=== PATIENT | male | born 1940 | race Caucasian/White ===

== ENCOUNTER 2020-06-18 16:11 | Inpatient (IN) | payer OTHER ==
--- OUTSIDE RECORDS SUMMARY | 2020-06-18 16:14 | XMS REPORT | Clinical Summary ---
:1940 Author Organization [facility] Address [address] [place] [address] Care Team Providers Name Role Phone Buck Zhang MD Primary Care Provider Allergies Active Allergy Reactions Severity Noted Date Comments No Known Drug Allergies Medications Medication Sig Dispensed Refills Start End Status Date Date risedronate (ACTONEL) TAKE 1 TABLET 3 08/16/20 Active 150 MG tablet BY ORAL ROUTE 16 EVERY MONTH IN MORNING WITH 8OZ WATER RANITIDINE HCL (ZANTAC Take by mouth. 0 Active 75 ORAL) CALCIUM Take 600 mg by 0 Activ e CARBONATE/VITAMIN D3 mouth 2 (two) (CALCIUM 500 WITH D times a day. ORAL) aspirin (ECOTRIN) 81 Take 81 mg by 0 Active MG enteric coated mouth daily. tablet multivitamin Take 1 tablet 0 Act violette (THERAGRAN) tablet by mouth daily. FLUZONE HIGH-DOSE TO BE 0 06/19/20 Ac tive 2017-, PF, 180 ADMINISTERED BY 18 mcg/0.5 mL syringe IM PHARMACIST FOR injection IMMUNIZATION valsartan (DIOVAN) 40 TAKE 1 TABLET 30 tablet 0 06/25/20 Active MG tablet BY MOUTH EVERY 19 DAY valsartan 80 MG tablet Take 1 tablet 0 Active 1 tablet, by mouth daily. hydroCHLOROthiazide 25 1/2 tab once MG tablet 0.5 tablet daily tamsulosin (FLOMAX) Take 0.4 mg by 0 Active 0.4 mg capsule mouth daily with dinner. 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 STENT Medical History Medical History Date Comments Aneurysm (HCC) kidney Hypertension Arrhythmia Family History Medical History Relation Name Comments Stroke Mother Cancer Sister Heart attack Sister Relation Name Status Comments Father Mother Sister Social History Tobacco Use Types Packs/Day Years Used Date Never Smoker Smokeless Tobacco: Never Used Alcohol Use Drinks/Week oz/Week Comments No Sex Assigned at Date Recorded Not on file COVID-19 Exposure Response Date Recorded In the last month, have you been in contact with No / Unsure 06/06/2020 1:44 PM CDT someone who was confirmed or suspected to have Coronavirus / COVID-19? Last Filed Vital Signs Vital Sign Reading Time Taken Comments Blood Pressure 166/67 06/06/2020 1:54 PM CDT Pulse 51 06/06/2020 1:54 PM CDT Temperature - - Respiratory Rate - - Oxygen Saturation - - Inhaled Oxygen Concentration - - Weight 68 kg (150 lb) 06/06/2020 1:54 PM CDT Height 175.3 cm (5' 9") 06/06/2020 1:54 PM CDT Body Mass Index 22.15 06/06/2020 1:54 PM CDT Plan of Treatment Date Type Specialty Care Team Description 06/20/2020 Appointment Procedural Cardiology Health Maintenance Due Date Last Done Comments SHINGLES VACCINES (#1) 1990 65+ PNEUMOCOCCAL VACCINE (1 of 1 - PPSV23) 2005 INFLUENZA VACCINE 04/08/2020 Implants Implanted Type Area Brazing Machine Feeder Device Shelf Model / Identifier Expiration Serial / Date Lot Stent Bili Elite Herculink Neil 6x12mm W/ Cath 80cm - [id number] Peripheral or N/A: LYLE VASCULAR 06/07/2018 [id number] 12 / Implanted: 12/12/2016 at [facility] (Quantity not on file) Dimitris iary Stents N/A DEVICES / [id number] Procedures Procedure Name Priority Date/Time Associated Diagnosis Comme nts TTE COMPLETE, W Routine 06/07/2020 1:40 Essential Results for this CONTRAST, W DOPPLER PM CDT hypertension procedure are in (C8929) Coronary artery the results disease of king salmon section. artery of king salmon heart with stable angina pectoris (HCC) SOB (shortness of breath) Renal artery stenosis (HCC) US RENAL DOPPLER Routine 06/07/2020 12:02 Essential Results for this PM CDT hypertension procedure are in Coronary artery the results disease of king salmon section. artery of king salmon heart with stable angina pectoris (HCC) SOB (shortness of breath) Renal artery stenosis (HCC) ECG 12-LEAD Routine 06/06/2020 1:57 Essential Results for this AM CDT hypertension procedure are i n the results section. after 06/18/2019 Results Transthoracic Echocardiogram Complete, (w Contrast, Strain and 3D if needed) (06/07/2020 1:40 PM CDT) Specimen Narrative Performed At [facility] Echo cardiography Report Pat.Name: JORDI THAPA Pat.ID: [id number] .Date: 06/07/2020 Refer.MD: JIM BROWN MD Exam Time: 1:13:00 PM Study Type:R outine Echo Height: 69in Weight: 150lb BSA: 1.83 m2 Ag e: 1940,80Y Sex: MALE BP: 166/67 HR: 57 bpm Sonogrphr: DAVID Richardson FASE Pat. Stat.:Outpatient Room: [place] Study Status:Final Echo Event ID:[id number] Order ID: [id number] Reason for Study:Essential hypertension [I10 (ICD-10-CM)]; Coronary artery disease of king salmon artery of nativ e heart with stable angina pectoris (HCC) [I25.118 (ICD-10-CM)]; SO B (shortness of breath) [R06.02 (ICD-10-CM)]; Renal artery steno sis ([facility]) [I70.1 (ICD-10-CM)] Procedures: 2D Echo, Colorflow Doppler SUMMARY: Normal 2D and Doppler examination. FINDINGS: LV: LV size is normal. LV EF is normal. Overall wall motion is normal. Estimated EF is 6 0-64%. RV: RV size is normal. RV systo lic function is normal. LA: LA size is normal. RA: RA size is normal. AO: Aortic root diameter is nor mal. DAYO: No pericardial effusion. AV: No structural AV abnormalit ies noted. MV: No structural MV abnormalit ies noted. Mild mitral regurgitation. PV: No structural PV abnormalit ies noted. A trace of pulmonic regurgitation. TV: No structural TV abnormalit ies noted. Mild tricuspid regurgitation Goldberg: Normal diastolic function an d LV filling pressures. Other: Estimated PA systolic pressu re is 30 mmHg, assuming a mean RAP of 5 mmHg. MEASUREMENTS: 2D Parasternal Long [place] Ao An 1.5 cm LVPWd 0.88 cm Ao Rtd 3.1 cm Index 1.7 cm/m2 LA Ds 2.5 cm IVSd 1.1 cm RWT 0.38 LVIDd 4.6 cm Index 2.5 cm/m2 LV Mass 158 g (122-1 74) LVIDs 2.9 cm LVM In dex 87 g/m LV%fs 38 % LVOT 1.7 cm LVOT LVOT Area 2.2 cm Signed 06/07/2020 01:59 PM Aguila Bianchi MD Procedure Note Interface, Radiology Results In - 2019 1:59 PM CDT [facility] Echocardiography Report Pat.Name: JORDI THAPA Pat.I D: [id number] St.Date: 06/07/2020 Refer .MD: JIM BROWN MD Exam Time: 1:13:00 PM Study Type:Routine Echo Height: 69in Weigh t: 150lb BSA: 1.83 m2 Age: 7 1940,80Y Sex: MALE BP: 166/67 HR: 57 bpm Sonogrphr: DAVID Richardson FASE Pat. Stat.:Outpatient Room: [place] Study Status:Final Echo Event ID:[id number] Order ID: [id number] Reason for Study:Essential hypertension [I10 (ICD-10-CM)]; Coronary artery disease of king salmon artery of nativ e heart with stable angina pectoris (HCC) [I25.118 (ICD-10-CM)]; SO B (shortness of breath) [R06.02 (ICD-10-CM)]; Renal artery steno sis (HCC) [I70.1 (ICD-10-CM)] Procedures: 2D Echo, Colorflow Doppler SUMMARY: Normal 2D and Doppler examination. FINDINGS: LV: LV size is normal. LV EF is no rmal. Overall wall motion is normal. Estimated EF is 60-64% . RV: RV size is normal. RV systolic function is normal. LA: LA size is normal. RA: RA size is normal. AO: Aortic root diameter is normal . DAYO: No pericardial effusion. AV: No structural AV abnormalities noted. MV: No structural MV abnormalities noted. Mild mitral regurgitation. PV: No structural PV abnormalities noted. A trace of pulmonic regurgitation. TV: No structural TV abnormalities noted. Mild tricuspid regurgitation Goldberg: Normal diastolic function and LV filling pressures. Other: Estimated PA systolic pressure is 30 mmHg, assuming a mean RAP of 5 mmHg. MEASUREMENTS: 2D Parasternal Long [place] Ao An 1.5 cm LVPW d 0.88 cm Ao Rtd 3.1 cm Inde x 1.7 cm/m2 LA Ds 2.5 cm IVSd 1.1 cm RWT 0.38 LVIDd 4.6 cm Inde x 2.5 cm/m2 LV Mass 158 g (122-174) LVIDs 2.9 cm LVM Index 87 g/m LV%fs 38 % LVOT 1.7 cm LVOT LVOT Area 2.2 cm Signed 06/07/2020 01:59 PM Aguila Bianchi MD Performing Organization Address City/State/ZIP Code Phon e Number [facility] [id number] [place] [address] US Renal Doppler (06/07/2020 12:02 PM CDT) Specimen Narrative Performed At EXAMINATION: US RENAL DOPPLER [facility] CLINICAL HISTORY: I10 Essential (primary) hypertensi on, I25.118 Atherosclerotic heart disease of king salmon coronary arter y with other forms of angina pectoris, other TECHNIQUE: Examination includes a full duplex Doppler scan of the renal vessels (real-time B mode grayscale, Doppler spectral analysis, and Doppler color flow imaging). COMPARISON: None. FINDINGS: Right renal arterial waveforms demonstrate normal syst olic upstrokes and good end diastolic flow. The right renal vein is pat ent. The resistive index measures between 0.75 and 0.82. Right renal artery stent. Peak systolic velocity the main r enal artery is 225 cm/s. Left renal arterial waveforms demonstrate normal systo lic upstrokes and good end diastolic flow. The left renal vein is patent . The resistive index measures between 0.71 and 0.78. Peak systolic ve locity the main left renal artery is 171 cm/s. IMPRESSION: 1.No evidence to suggest renal artery st enosis. 2.Atherosclerotic changes involve the abdominal aorta in addition to calcifications and plaque arteries. [id number] Procedure Note Hm Interface, Radiology Results Incoming - 06/07/2020 12:17 PM CDT EXAMINATION: US RENAL DOPPLER CLINICAL HISTORY: I10 Essential (primar y) hypertension, I25.118 Atherosclerotic heart disease of king salmon coronary artery with other forms of angina pectoris, other TECHNIQUE: Examination includes a full d uplex Doppler scan of the renal vessels (real-time B mode grayscale, Doppler spectral analysis, and Doppler color flow imaging). COMPARISON: None. FINDINGS: Right renal arterial waveforms demonstra te normal systolic upstrokes and good end diastolic flow. The right renal vein is patent. The resistive index measures between 0.75 and 0.82. Right renal artery stent. Peak systolic velocity the main renal artery is 225 cm/s. Left renal arterial waveforms demonstrat e normal systolic upstrokes and good end diastolic flow. The left renal vein is patent. The resistive index measures between 0.71 and 0.78. Peak systolic velocity the main left renal artery is 171 cm/s. IMPRESSION: 1.No evidence to suggest renal artery st enosis. 2.Atherosclerotic changes involve the ab dominal aorta in addition to calcifications and plaque arteries. [id number] Performing Organization Address City/State/ZIP Code Phon e Number [facility] [address] [facility] [place] [address] ECG 12 lead (06/06/2020 1:57 AM CDT) Pathologist Sig nature Ventricular rate 51 [facility] Atrial rate 51 [facility] TX interval 158 [facility] QRSD interval 102 [facility] QT interval 430 [facility] QTC interval 396 [facility] P axis 1 83 [facility] QRS axis 1 82 [facility] T wave axis 78 [facility] EKG impression Sinus bradycardia with michel ture atrial complexes-Minimal voltage criteria for LVH, may be normal variant-Borderline ECG-In automated comparison with ECG of 14-JUL-2018 08:15,-No significant change was [facility] M[facility] found- Specimen Narrative Performed At This result has an attachment that is no t available. Performing Organization Address City/State/ZIP Code Phon e Number [facility] MUSE [address] [place] [address] after 06/18/2019 Advance Directives For more information, please contact: [phone] Type Date Recorded Patient Rn Primary Care Explanati on Advance Directives, Living Will and Medical Power of Narcotics And/Or Vice Detective
--- OUTSIDE RECORDS SUMMARY | 2020-06-18 16:14 | XMS REPORT | Continuity of Care Document ---
:[address] [facility] t Address Formerly [facility] [address] [place] [address] Care Team Providers Name Role Phone Buck Zhang MD Primary Care Physician KEVIN Attending Clinician Unavailable Alexandro MEDINA Attending Clinician Doctor Unassigned, Name Attending Clinician Unavailable Payers Payer Name Policy Type Policy Effective Date Expiration Date Sour ce Number AETNA MEDICAREAETNA [id number] 2013 [place] MEDICARE H[place]/PPO 00:00:00 Methodis t [id number] -PresentHMO Problems Condition Condition Condition Status Onset Resolution Last Treating Co mments Source Name Details Category Date Date Treatment Clinician Date SOB SOB Disease Active [place] (shortness (shortness 9-29 [facility] of breath) of breath) 00:00: st 00 Coronary Coronary Disease Active [place] artery artery 9-29 [facility] disease of disease of 00:00: st [place] 00 artery of artery of [place] heart with heart with stable stable angina angina pectoris pectoris Renal Renal Disease Active [place] artery artery 3-07 [facility] stenosis stenosis 00:00: st 00 Essential Essential Disease Active [place] hypertensi hypertensi 2-14 Me thodi on on 00:00: st 00 Renal Renal Disease Active [place] artery artery 2-14 [facility] aneurysm aneurysm 00:00: st 00 Palpitatio Palpitatio Disease Active [place] n 2-14 Method[facility] 00:00: st 00 Allergies, Adverse Reactions, Alerts This patient has no known allergies or adverse reactions. Family History Family Member Diagnosis Comments Start Date Stop Date Source Natural mother Stroke [facility] thodist Natural sister Cancer [facility]odist Natural sister Heart attack [facility] Caodaism Social History Social Habit Start Date Stop Date Quantity Comments Source Sex Assigned At [facility] ethodist Exposure to Not sure [place] Metho dist SARS-CoV-2 (event) Tobacco use and 2020-06-06 2020-06-06 Never used [facility] ethodist exposure 00:00:00 00:00:00 Alcohol intake 2020-06-06 2020-06-06 Current [facility] thodist 00:00:00 00:00:00 non-drinker of alcohol (finding) Smoking Status Start Date Stop Date Source Never smoker [place] Bintais damari Medications Ordered Filled Start Stop Current Ordering Indication Dosage Frequency Signature Comments Components Source Medication Medication Date Date Medication? Clinician (SIG) Name Name RANITIDINE Yes Take by [place] HCL (ZANTAC 06-06 mouth. Method i 75 ORAL) 14:00: st 56 CALCIUM 2020-0 Yes 600mg Q.5D Take 600 [place] CARBONATE/V 9-29 mg by [facility] ITAMIN D3 14:00: mouth 2 st (CALCIUM 56 (two) 500 WITH D times a ORAL) day. aspirin 2019-0 Yes 81mg QD Take 81 mg [place] (ECOTRIN) - by mouth Method i 81 MG 14:00: daily. st enteric 56 coated tablet multivitami 2019-0 Yes 1{tbl} QD Take 1 [place] 9-29 tablet by [facility] (THERAGRAN) 14:00: mouth st tablet 56 daily. valsartan 2019- Yes 1{tbl} QD Take 1 [place] 80 MG 9-29 tablet by [facility] tablet 1 14:00: mouth st tablet, 56 daily. 1/2 hydroCHLORO tab once thiazide 25 daily MG tablet 0.5 tablet tamsulosin 2019- Yes .4mg QD Take 0.4 [place] (FLOMAX) 9-29 mg by [facility] 0.4 mg 14:00: mouth st capsule 56 daily with dinner. valsartan 2018-09 Yes TAKE 1 [place] (DIOVAN) 40 0-18 TABLET BY Met hodi MG tablet 00:00: MOUTH st 00 EVERY DAY valsartan 2019- No TAKE 1 [place] (DIOVAN) 40 7-19 10-18 TABLET BY Me thodi MG tablet 00:00: 00:[address] 00 :00 EVERY DAY FLUZONE 2017-09 Yes TO BE [place] HIGH-DOSE 0-12 ADMINISTER Meth [place] , 00:00: ED BY st PF, 180 00 PHARMACIST mcg/0.5 mL FOR syringe IM IMMUNIZATI injection ON risedronate 2015-09 Yes TAKE 1 [place] (ACTONEL) 2-09 TABLET BY [place] di 150 MG 00:00: ORAL ROUTE st tablet 00 EVERY MONTH IN MORNING WITH 8OZ WATER Vital Signs Vital Name Observation Time Observation Value Comments Source Systolic blood 2020-06-06 13:54:00 166 mm[Hg] Benyto n Caodaism pressure Diastolic blood 2020-06-06 13:54:00 67 mm[Hg] [place] [facility]oda[place] pressure Heart rate 2020-06-06 13:54:00 51 /min Bijan Virgen Body height 2020-06-06 13:54:00 175.3 cm Bijan Virgen Body weight 2020-06-06 13:54:00 68.04 kg Bijan Virgen BMI 2020-06-06 13:54:00 22.15 kg/m2 Bijan Virgen Procedures Procedure Date / Time Performed Performing Clinician Sourc e TTE COMPLETE, W 2020-06-07 13:40:20 Jim Garcia CONTRAST, W DOPPLER (C8929) US RENAL DOPPLER 2020-06-07 12:02:05 Jim Garcia Met hodist ECG 12-LEAD 2020-06-06 01:57:29 Jim Garcia odist Plan of Care Planned Activity Planned Date Details Comments Source Future Scheduled 2020-04-08 INFLUENZA VACCINE Benyto n Caodaism Test 00:00:00 [code = INFLUENZA VACCINE] Future Scheduled 2005 65+ PNEUMOCOCCAL Thakkar Caodaism Test 00:00:00 VACCINE (1 of 1 - PPSV23) [code = 65+ PNEUMOCOCCAL VACCINE (1 of 1 - PPSV23)] Future Scheduled 1990 SHINGLES VACCINES (#1) H mihai Caodaism Test 00:00:00 [code = SHINGLES VACCINES (#1)] Encounters Start End Encounter Admission Attending Care Care Encounter Source Date/Time Date/Time Type Type Clinicians Facility Department ID 2020-06-07 2020-06-07 Outpatient [facility]IN [facility] [id number] [place] 00:00:00 00:00:00 JIM [address] 2020-06-07 2020-06-07 Outpatient [facility] [id number] [place] 00:00:00 00:00:00 JIM [address] 2020-06-06 2020-06-06 Outpatient [facility]EVIN [facility] [id number] [place] 00:00:00 00:00:00 JIM [address] 2019-10-13 2019-10-13 Telephone [facility] [id number] 00:00:00 00:00:00 Hai Feldman [id number] [place] [id number] Professcarito [phone] nal 044 [facility] 2019-10-12 2019-10-12 Orders Doctor AZAM [id number] 00:00:00 00:00:00 Only Unassigned, BHARATH [id number] [place] [facility] [id number] 2019-05-03 2019-05-20 Office [facility] [id number] 14:34:48 12:20:49 Visit Hai Feldman [id number] [place] [id number] Professio [id number] nal 044 [facility] Results Test Description Test Time Test Comments Results Result Comments Source ECG 12 lead 2020-06-06 23:41:14 Test Item Value Reference Range Interpretation Comme nts Ventricular rate (test code = 253) 51 Atrial rate (test code = 255) 51 MD interval (test code = 266) 158 QRSD interval (test code = 260) 102 QT interval (test code = 264) 430 QTC interval (test code = 265) 396 P axis 1 (test code = 267) 83 QRS axis 1 (test code = 268) 82 T wave axis (test code = 270) 78 EKG impression (test code = 273) Sinus bradycardia with premature a trial complexes-Minimal voltage criteria for LVH, may be normal variant-Borderline ECG-In automated comparison with ECG of 14-JUL-2018 08:15,-No significant change was found- Bijan Virgen
[2020-06-18] MEDS ORDERED: FENTANYL CITR 100 MCG/2 ML ONE (16:38)
[2020-06-18 16:46] LABS: Absolute Lymphocytes (CBC) 2.1 K/uL (0.7-4.9); Basophils % 1.2 % (0-1.3); Hematocrit 37.5 % (39.6-49.0); Lymphocytes % 40.3 % (15.3-44.8); MPV 7.7 fL (7.6-11.3)
[2020-06-18 16:49] LABS: Protime INR 0.96
--- NOTE | 2020-06-18 16:54 | RAD REPORT ---
EXAM DESCRIPTION: RAD - Hip Left 2 View - 06/18/2020 4:42 pm CLINICAL HISTORY: DEFORMITY COMPARISON: No comparisons FINDINGS: AP and cross-table lateral views were obtained. An oblique intertrochanteric fracture is present. Lesser trochanter remains attached to the distal fr acture fragment. There is minimal impaction and only minimal angulation deformity. Patient has a rela tively short femoral neck which is intact. No focal femoral head abnormality. Degenerative change pre sent along the superior acetabular rim. No significant soft tissue finding. IMPRESSION: Left femur intertrochanteric fracture. No pathologic component seen.
[2020-06-18 17:05] LABS: ALT/SGPT 19 U/L (12-78); AST/SGOT 18 U/L (15-37); Albumin 3.4 g/dL (3.4-5.0); Alkaline Phosphatase 70 U/L (45-117); BUN Blood Urea Nitrogen 26 mg/dL (7-18); Bicarbonate 32 mmol/L (21-32); Bilirubin Total 0.3 mg/dL (0.2-1.0); Glucose Level 105 mg/dL (74-106); Potassium 3.9 mmol/L (3.5-5.1); Protein, Total 6.8 g/dL (6.4-8.2); Sodium Level 143 mmol/L (136-145); Troponin (Emerg Dept Use Only) < 0.02 ng/mL (0.0-0.045)
[2020-06-18] MEDS ORDERED: DIAZEPAM 10 MG/2 ML INJ SYRINGE ONE (17:52)
--- NOTE | 2020-06-18 18:08 | EDPHYS ---
Physician Documentation [facility] Name: Jordi Hayward Age: 80 yrs Sex: Male : 1940 Arrival Date: 06/18/2020 Time: 16:19 Bed 3 Private MD: ED Physician Josh Hutton HPI: 06/18 16:21 This 80 yrs old Male presents to ER via EMS with complaints of left hip pain. ps1 16:21 Patient sustained mechanical fall. No loss of consciousness. Has short rotated left ps1 leg. Not on blood thinners. No headache, lightheadedness, or other sites of pain. . Historical: - Allergies: 16:22 No Known Allergies; ll1 - PMHx: 16:22 Osteoporosis; Hypertension; ll1 - PSHx: 16:22 Kidney stents; retinal artery sx; ll1 - Immunization history:: Flu vaccine is up to date. - Social history:: Smoking status: Patient denies any tobacco usage or history of. - Immunization history: Last tetanus immunization: < 10 years ago. ROS: 16:21 Constitutional: Negative for fever, chills, and weight loss, Eyes: Negative for injury, ps1 pain, redness, and discharge, Cardiovascular: Negative for chest pain, palpitations, and edema, Respiratory: Negative for shortness of breath, cough, wheezing, and pleuritic chest pain, Abdomen/GI: Negative for abdominal pain, nausea, vomiting, diarrhea, and constipation, Skin: Negative for injury, rash, and discoloration, Neuro: Negative for headache, weakness, numbness, tingling, and seizure. 16:21 MS/extremity: Positive for decreased range of motion, pain, of the lateral aspect of left thigh. Exam: 16:21 Constitutional: This is a well developed, well nourished patient who is awake, alert, ps1 and in no acute distress. Head/Face: Normocephalic, atraumatic. Eyes: Pupils equal round and reactive to light, extra-ocular motions intact. Lids and lashes normal. Conjunctiva and sclera are non-icteric and not injected. Chest/axilla: Normal chest wall appearance and motion. Nontender with no deformity. No lesions are appreciated. Cardiovascular: Regular rate and rhythm. No gallops, murmurs, or rubs. Normal PMI, no JVD. No pulse deficits. Respiratory: Lungs have equal breath sounds bilaterally, clear to auscultation and percussion. No rales, rhonchi or wheezes noted. No increased work of breathing, no retractions or nasal flaring. Abdomen/GI: Soft, non-tender, with normal bowel sounds. No distension or tympany. No guarding or rebound. No evidence of tenderness throughout. 16:21 Musculoskeletal/extremity: Extremities: grossly normal except: noted in the left leg and lateral aspect of left thigh: deformity, pain. Vital Signs: 16:19 BP 201 / 80; Pulse 60; Resp 16; Temp 98.0; Pulse Ox 100% ; Pain 6/10; ll1 17:00 BP 153 / 67; Pulse 49; Resp 15; Pulse Ox 100% on R/A; Pain 5/10; hb 18:00 BP 167 / 63; Pulse 52; Resp 15; Pulse Ox 99% on R/A; Pain 6/10; hb 18:58 BP 164 / 64; Pulse 49; Resp 15; Pulse Ox 100% ; Pain 6/10; hb 19:24 BP 159 / 79; Pulse 52; Resp 18; Pulse Ox 100% on R/A; wh Vesna Coma Score: 16:16 Eye Response: spontaneous(4). Verbal Response: oriented(5). Motor Response: obeys sv commands(6). Total: 15. Trauma Score (Adult): 16:19 Eye Response: spontaneous(1); Verbal Response: oriented(1); Motor Response: obeys sv commands(2); Systolic BP: > 89 mm Hg(4); Respiratory Rate: 10 to 29 per min(4); Vesna Score: 15; Trauma Score: 12 17:00 Eye Response: spontaneous(1); Verbal Response: oriented(1); Motor Response: obeys hb commands(2); Systolic BP: > 89 mm Hg(4); Respiratory Rate: 10 to 29 per min(4); Vesna Score: 15; Trauma Score: 12 18:00 Eye Response: spontaneous(1); Verbal Response: oriented(1); Motor Response: obeys hb commands(2); Systolic BP: > 89 mm Hg(4); Respiratory Rate: 10 to 29 per min(4); Tumtum Score: 15; Trauma Score: 12 18:58 Eye Response: spontaneous(1); Verbal Response: oriented(1); Motor Response: obeys hb commands(2); Systolic BP: > 89 mm Hg(4); Respiratory Rate: 10 to 29 per min(4); Vesna Score: 15; Trauma Score: 12 MDM: 16:29 Patient medically screened. ps1 18:08 Data reviewed: vital signs, nurses notes, radiologic studies, and as a result, I will ps1 admit patient. Counseling: I had a detailed discussion with the patient and/or guardian regarding: the historical points, exam findings, and any diagnostic results supporting the discharge/admit diagnosis, radiology results, the need for further work-up and treatment in the hospital. Physician consultation: Froilan Oakes MD NPO after 8am. Will do surgery late tomorrow. . 06/18 16:29 Order name: CBC with Diff; Complete Time: 17:37 ps1 06/18 16:29 Order name: CMP; Complete Time: 17:37 [facility] 06/18 16:29 Order name: PT-INR; Complete Time: 17:37 [facility] 06/18 16:29 Order name: Ptt, Activated; Complete Time: 17:37 ps1 06/18 16:29 Order name: Troponin (emerg Dept Use Only); Complete Time: 17:37 [facility] 06/18 18:15 Order name: Basic Metabolic Panel EDMS 06/18 16:29 Order name: Hip Left 2 View XRAY; Complete Time: 17:37 [facility] 06/18 18:15 Order name: Basic Metabolic Panel EDMS 06/18 18:15 Order name: CBC with Automated Diff EDMS 06/18 18:15 Order name: CBC with Automated Diff EDMS 06/18 18:15 Order name: CONS Physician Consult EDMS 06/18 18:15 Order name: NPO EDMS Administered Medications: 16:31 Drug: fentaNYL (PF) 75 mcg Route: IVP; Site: right antecubital; hb 17:01 Follow up: Response: No adverse reaction hb 16:31 Drug: Zofran (Ondansetron) 4 mg Route: IVP; Site: right antecubital; hb 17:01 Follow up: Response: No adverse reaction hb 17:44 Drug: Valium 2.5 mg Route: IVP; Site: right wrist; ph 17:45 Follow up: Response: No adverse reaction ph 18:12 Drug: Valium 2.5 mg Route: IVP; Site: right forearm; hb 19:27 Follow up: Response: No adverse reaction; RASS: Alert and Calm (0) Disposition: 06/18/20 18:08 Hospitalization ordered by Cora Zhang for Inpatient Admission. Preliminary diagnosis is Left intertrochanteric fracture. - Bed requested for Telemetry/MedSurg (Inpatient). - Status is Inpatient Admission. bb - Condition is Stable. - Problem is new. - Symptoms are unchanged. Signatures: Dispatcher [employer] EDMS Sosa Goodson RN RN bb Tish Rodriguez RN RN tl1 Lor Sanchez RN RN Vera Somers RN RN Josh Hutton MD MD ps1 Randell Ojeda RN RN ll1 Paul Parnell Corrections: (The following items were deleted from the chart) 18:50 18:08 Hospitalization Ordered by A Vicente MEDINA for Inpatient Admission. Preliminary tl1 diagnosis is Left intertrochanteric fracture. Bed requested for Telemetry/MedSurg (Inpatient). Status is Inpatient Admission. Condition is Stable. Problem is new. Symptoms are unchanged. ps1 19:41 18:50 06/18/2020 18:08 Hospitalization Ordered by A Vicente MEDINA for Inpatient Admission. bb Preliminary diagnosis is Left intertrochanteric fracture. Bed requested for Telemetry/MedSurg (Inpatient). Status is Inpatient Admission. Condition is Stable. Problem is new. Symptoms are unchanged. tl1
--- NOTE | 2020-06-18 18:08 | ER ---
Nurse's Notes [facility] Name: Jordi Hayward Age: 80 yrs Sex: Male : 1940 Arrival Date: 06/18/2020 Time: 16:19 Bed 3 Private MD: Diagnosis: Left intertrochanteric fracture Presentation: 06/18 16:16 Care prior to arrival: Placed on backboard. Trauma event details: Injury occurred in [facility], Injury occurred: at home. Injury occurred: June 18, 2020. 16:19 Chief complaint: EMS states: Vital signs stable. Chief complaint: Patient states: ll1 Working with a wheelbarrow, contents shifted, he fell over onto left hip. No LOC or head injury. Back board upon arrival. Trauma alert called upon arrival. Coronavirus screen: Client denies travel out of the [place] in the last 14 days. At this time, the client does not indicate any symptoms associated with coronavirus-19. Ebola Screen: Patient denies travel to an Ebola-affected area in the 21 days before illness onset. Initial Sepsis Screen: Does the patient meet any 2 criteria? No. Patient's initial sepsis screen is negative. Does the patient have a suspected source of infection? Yes: Bone or joint infection. Risk Assessment: Do you want to hurt yourself or someone else? Patient reports no desire to harm self or others. Onset of symptoms was June 18, 2020. 16:19 Method Of Arrival: EMS ll1 16:19 Acuity: DARRYN 2 ll1 16:22 Mechanism of Injury: Fall from standing position. hb Trauma Activation: Alert Physician: ED Physician; Name: Dr Hutton; Notified At: 16:16; Arrived At: 16:20 Physician: General Surgeon; Name: ; Notified At: 16:16; Arrived At: Physician: Radiology; Name: Shayy Bravo; Notified At: 16:16; Arrived At: 16:17 Physician: Respiratory; Name: ; Notified At: 16:16; Arrived At: Physician: Lab; Name: ; Notified At: 16:16; Arrived At: Historical: - Allergies: 16:22 No Known Allergies; ll1 - PMHx: 16:22 Osteoporosis; Hypertension; ll1 - PSHx: 16:22 Kidney stents; retinal artery sx; ll1 - Immunization history:: Flu vaccine is up to date. - Social history:: Smoking status: Patient denies any tobacco usage or history of. - Immunization history: Last tetanus immunization: < 10 years ago. Screenin:30 Abuse screen: Denies threats or abuse. Denies injuries from another. Tuberculosis sv screening: No symptoms or risk factors identified. 16:30 Nutritional screening: No deficits noted. Fall Risk No fall in past 12 months (0 pts). sv No secondary diagnosis (0 pts). IV access (20 points). Ambulatory Aid- None/Bed Rest/Nurse Assist (0 pts). Gait- Normal/Bed Rest/Wheelchair (0 pts) Mental Status- Oriented to own ability (0 pts). Total Byers Fall Scale indicates No Risk (0-24 pts). Primary Survey: 16:16 NO uncontrolled hemorrhage observed. A: The patient is alert. Airway: patent. hb Breathing/Chest: Respiratory pattern: regular, Respiratory effort: spontaneous, unlabored, Chest inspection: symmetrical rise and fall of the chest. Circulation: Pulses: palpable left dorsalis pedis artery. Skin color: pink, pale, Skin temperature: warm, dry. Disability Alert. Exposure/Environment: All clothing and personal items were removed. Forensic evidence collection is not deemed to be indicated at this time. Items placed in patient belonging bag. There is no evidence of uncontrolled external bleeding. Obvious injury(ies) are noted at this time: shortening and external rotation noted to left leg. 17:00 Reassessment Airway Airway Patent Oxygen No O2 Breathing/Chest Respiratory pattern hb Regular Respiratory effort Spontaneous Chest inspection Symmetrical Circulation Pulses Palpable Color Owen Disability Alert. 18:00 Reassessment Airway Airway Patent Oxygen No O2 Breathing/Chest Respiratory pattern hb Regular Respiratory effort Spontaneous Unlabored Chest inspection Symmetrical Circulation Pulses Palpable Color Owen. 18:59 Reassessment Airway Airway Patent Oxygen No O2 Breathing/Chest Respiratory pattern hb Regular Respiratory effort Spontaneous Unlabored Chest inspection Symmetrical Circulation Pulses Palpable Color Owen Disability Alert. Secondary Survey: 16:16 HEENT: No deficits noted. Gastrointestinal: No deficits noted. : No deficits noted. hb Musculoskeletal: left leg shortened and externally rotated. Assessment: 16:17 Reassessment: Trauma alert called. hb 16:20 General: Appears in no apparent distress. Behavior is calm, cooperative. Pain: Pain hb currently is 8 out of 10 on a pain scale. Neuro: Level of Consciousness is awake, alert, obeys commands, Oriented to person, place, time, situation. Cardiovascular: Capillary refill < 3 seconds Patient's skin is warm and dry. Pulses are 3+ in left dorsalis pedis artery. Respiratory: Airway is patent Respiratory effort is even, unlabored, Respiratory pattern is regular, symmetrical. GI: No signs and/or symptoms were reported involving the gastrointestinal system. : No signs and/or symptoms were reported regarding the genitourinary system. EENT: No signs and/or symptoms were reported regarding the EENT system. Derm: Skin is pink, warm \T\ dry. Musculoskeletal: left leg shortened and externally rotated. 17:02 Reassessment: Patient appears in no apparent distress at this time. Patient and/or hb family updated on plan of care and expected duration. Pain level reassessed. Patient is alert, oriented x 3, equal unlabored respirations, skin warm/dry/pink. 17:45 Reassessment: Pt c/o back spasms, ERP notified, see MAR. ph 18:00 Reassessment: Patient appears in no apparent distress at this time. No changes from hb previously documented assessment. Patient and/or family updated on plan of care and expected duration. Pain level reassessed. Patient is alert, oriented x 3, equal unlabored respirations, skin warm/dry/pink. 18:32 Reassessment: Hari Hayward [phone] (home), (cell). hb 18:58 Reassessment: Patient appears in no apparent distress at this time. No changes from hb previously documented assessment. Patient and/or family updated on plan of care and expected duration. Pain level reassessed. Patient is alert, oriented x 3, equal unlabored respirations, skin warm/dry/pink. Vital Signs: 16:19 BP 201 / 80; Pulse 60; Resp 16; Temp 98.0; Pulse Ox 100% ; Pain 6/10; ll1 17:00 BP 153 / 67; Pulse 49; Resp 15; Pulse Ox 100% on R/A; Pain 5/10; hb 18:00 BP 167 / 63; Pulse 52; Resp 15; Pulse Ox 99% on R/A; Pain 6/10; hb 18:58 BP 164 / 64; Pulse 49; Resp 15; Pulse Ox 100% ; Pain 6/10; hb 19:24 BP 159 / 79; Pulse 52; Resp 18; Pulse Ox 100% on R/A; wh Protivin Coma Score: 16:16 Eye Response: spontaneous(4). Verbal Response: oriented(5). Motor Response: obeys sv commands(6). Total: 15. Trauma Score (Adult): 16:19 Eye Response: spontaneous(1); Verbal Response: oriented(1); Motor Response: obeys sv commands(2); Systolic BP: > 89 mm Hg(4); Respiratory Rate: 10 to 29 per min(4); Vesna Score: 15; Trauma Score: 12 17:00 Eye Response: spontaneous(1); Verbal Response: oriented(1); Motor Response: obeys hb commands(2); Systolic BP: > 89 mm Hg(4); Respiratory Rate: 10 to 29 per min(4); Vesna Score: 15; Trauma Score: 12 18:00 Eye Response: spontaneous(1); Verbal Response: oriented(1); Motor Response: obeys hb commands(2); Systolic BP: > 89 mm Hg(4); Respiratory Rate: 10 to 29 per min(4); Protivin Score: 15; Trauma Score: 12 18:58 Eye Response: spontaneous(1); Verbal Response: oriented(1); Motor Response: obeys hb commands(2); Systolic BP: > 89 mm Hg(4); Respiratory Rate: 10 to 29 per min(4); Vesna Score: 15; Trauma Score: 12 ED Course: 16:16 Patient maintains SpO2 saturation greater than 95% on room air. sv 16:19 Patient arrived in ED. hb 16:19 Vera Somers, RN is Primary Nurse. hb 16:20 Triage completed. ll1 16:20 Arm band placed on Patient placed in an exam room, on a stretcher. ll1 16:20 Thermoregulation: warm blanket given to patient. sv 16:21 Josh Hutton MD is Attending Physician. ps1 16:25 Patient has correct armband on for positive identification. Placed in gown. Bed in low sv position. Call light in reach. Side rails up X2. 16:30 Inserted saline lock: 20 gauge in right forearm, using aseptic technique. Blood hb collected. 16:42 Hip Left 2 View XRAY In Process Unspecified. EDMS 18:07 Cora Zhang MD is Hospitalizing Provider. ps1 19:26 No provider procedures requiring assistance completed. Patient admitted, IV remains in wh place. Administered Medications: 16:31 Drug: fentaNYL (PF) 75 mcg Route: IVP; Site: right antecubital; hb 17:01 Follow up: Response: No adverse reaction hb 16:31 Drug: Zofran (Ondansetron) 4 mg Route: IVP; Site: right antecubital; hb 17:01 Follow up: Response: No adverse reaction hb 17:44 Drug: Valium 2.5 mg Route: IVP; Site: right wrist; ph 17:45 Follow up: Response: No adverse reaction ph 18:12 Drug: Valium 2.5 mg Route: IVP; Site: right forearm; hb 19:27 Follow up: Response: No adverse reaction; RASS: Alert and Calm (0) wh Intake: 16:16 PO: 0ml; Total: 0ml. sv Output: 16:16 Urine: 0ml; Total: 0ml. sv Outcome: 18:08 Decision to Hospitalize by Provider. ps1 18:37 Patient's length of stay in the Emergency Department was greater than 2 hours. Pt hb admitted, awaiting room assignment at this timePatient's length of stay extended due to 19:27 Admitted to Med/surg accompanied by tech, via stretcher, room 202, with chart, Report wh called to Gumaro Perry RN 19:27 Condition: stable 19:27 Instructed on the need for admit. 19:41 Patient left the ED. bb Signatures: Dispatcher [employer] EDCO Crystal Gurrola RN RN sv Sosa Goodson RN VIJI bb Lor Sanchez RN RN Vera Somers RN RN hb Habalo, Winsy Josh Hutton MD MD ps1 Randell Ojeda RN RN ll1 Corrections: (The following items were deleted from the chart) 16:22 16:19 Chief complaint: Patient states: Working with a wheelbarrow, contents shifted, he ll1 fell over onto left hip. No LOC or head injury. Back board upon arrival. ll1 16:22 16:19 Acuity: DARRYN 3 ll1 ll1 16:35 16:20 Inserted saline lock: 20 gauge in right forearm, using aseptic technique. Blood hb collected. hb 18:34 17:00 Reassessment Airway Airway Patent Oxygen No O2 Breathing/Chest Respiratory hb pattern Regular Respiratory effort Spontaneous Chest inspection Symmetrical Asymmetrical Circulation Pulses Palpable Color Owen Disability Alert hb
[2020-06-18] MEDS ORDERED: MORPHINE 4 MG/ML SYR IV PRN (18:11)
[2020-06-18] MEDS ORDERED: ONDANSETRON 4 MG/2 ML VIAL IV PRN (18:11)
[2020-06-18] MEDS ORDERED: VALSARTAN 80 MG TAB PO ONE (21:11)
[2020-06-18] MEDS: D5 0.9 NS 1,000 ML IV SCH (21:55)
--- NOTE | 2020-06-18 22:40 | HP ---
Date of Admission: 06/18/2020 FLY/MODL Voice ID: [id number] MTDD
[2020-06-18 23:43] VITALS: BMI 22.0
[2020-06-19 04:28] LABS: Absolute Lymphocytes (CBC) 1.5 K/uL (0.7-4.9); Basophils % 0.5 % (0-1.3); Hematocrit 32.4 % (39.6-49.0); MPV 7.8 fL (7.6-11.3); RBC Red Blood Cell Count 3.51 M/uL (4.33-5.43)
[2020-06-19] MEDS ORDERED: CYCLOBENZAPRINE 10 MG TAB PO ONE (06:51)
[2020-06-19] MEDS ORDERED: CYCLOBENZAPRINE 10 MG TAB ONE (07:25)
--- NOTE | 2020-06-19 08:08 | RAD REPORT ---
EXAM DESCRIPTION: RAD - Lumbar Spine 3 Views - 06/19/2020 8:01 am CLINICAL HISTORY: Back pain FINDINGS: The alignment of the lumbar spine is satisfactory. No fracture or dislocation is seen. Osteoporosis. Prominent anterolateral osteophytes extend from the lumbar spine.
--- NOTE | 2020-06-19 08:08 | RAD REPORT ---
EXAM DESCRIPTION: VÍCTORManueladamari Single View06/19/2020 8:01 am CLINICAL HISTORY: Preoperative exam COMPARISON: none FINDINGS: Lungs are moderately hyperaerated Calcified granulomas right lung The lungs appear clear of acute infiltrate. The heart is normal size IMPRESSION: COPD without visualization acute abnormality
[2020-06-19] MEDS ORDERED: VALSARTAN 80 MG TAB PO SCH (09:00)
[2020-06-19] MEDS: Ringers Lactate 1,000 ML IV ONE (10:50)
[2020-06-19] MEDS ORDERED: TRANEXAMIC ACID 1,000 MG in NA CHLORIDE 0.9% 50 ML IV ONE (11:00)
[2020-06-19] MEDS ORDERED: propofoL 200 MG/20 ML VIAL IV ONE (11:14)
[2020-06-19] MEDS ORDERED: MIDAZOLAM HCL 2 MG/2 ML INJ ONE (11:14)
[2020-06-19] MEDS ORDERED: FENTANYL CITR 100 MCG/2 ML ONE (11:14)
[2020-06-19] MEDS ORDERED: LIDOCAINE 2% MPF 5 ML VIAL ONE (11:14)
[2020-06-19] MEDS: D5 0.9 NS 1,000 ML IV SCH ×2 (11:20→14:24)
[2020-06-19] MEDS ORDERED: CEFAZOLIN/SWI 1gm 1 GM/10 ML SYR ONE (11:30)
[2020-06-19] MEDS ORDERED: EPHEDRINE SULF 50 MG/ML VIAL ONE (12:09)
--- NOTE | 2020-06-19 12:15 | HP ---
Date of Admission: 06/19/2020 Chief Complaint: Fall and hip pain. History Of Present Illness: This is an 80-year-old male patient who was working in his yard, and while he was working with a wheel bar, all of a sudden he lost balance and fell down on the ground on the left side. Immediately started complaining of pain in his left hip region. He was brought into emergency room. Further evaluation revealed presence of left hip fracture and the patient was admitted to the hospital. Along with pain in left hip, he is having lot of muscle spasm in his back. Pain medication helps him alleviating the pain but not helping with the muscle spasm and he is having significant complaint of that and would like to get something for it. Denies any other recent health problems or concerns. No chest pain, shortness of breath. No cough, cold, congestion. No fever or chills. No GI or urinary complaints. Allergies: NO KNOWN ALLERGIES. Medications: Aspirin 81 mg daily, Caltrate plus D 1 tablet by mouth 2 times a day, valsartan/HCTZ 80/12.5 mg the patient takes half a tablet by mouth daily, Risedronate 150 mg p.o. once a month, tamsulosin 0.4 mg p.o. daily. Review of Systems: Musculoskeletal: As mentioned above. All other systems reviewed and negative. Past Medical History: Significant for hypertension, impaired fasting glucose, hyperlipidemia, gastroesophageal reflux disease, benign prostatic hypertrophy, elevated PSA, insomnia, osteoporosis. Past Surgical History: Renal artery stent placement in 2017, hemorrhoid surgery. Family History: Mother had stroke. Father had colon cancer. Social History: Negative for smoking. Negative for alcohol use. Physical Examination: Vital Signs: This morning temperature 98.2, pulse 50, respiratory rate 17, blood pressure 143/65. Height 5 feet 9 inches, weight 149 pounds. Oxygen saturation 98%. General: Awake, alert, oriented, not in distress. HEENT: Head atraumatic, normocephalic. Conjunctivae nonerythematous. Sclerae white. Mouth, no thrush or edema noted. Ears/Nose, no mass, lesion, discharge noted. Neck: Supple. No JVD, lymph nodes, bruit, thyromegaly noted. Lungs: Bilateral good equal air entry. Clear to auscultation. No rhonchi. No rales. Heart: Normal heart sounds, no murmur or gallop. Abdomen: Soft, bowel sounds normal. No guarding, rigidity, tenderness, mass, hepatosplenomegaly, distention, or bruit noted. Extremities: No leg edema. No calf tenderness. Skin: No rash, ulcer, cellulitis. Lymphatics: No lymph node enlargement in neck, supraclavicular, infraclavicular region. Neuro: No focal neurological deficit. Chest: Unremarkable. External Genitalia: Deferred. Rectal: Deferred. Laboratory Data: White count 5.3, hemoglobin 12.7, platelets 170. INR 0.96. Sodium 143, potassium 3.9, chloride 106, bicarb 32, BUN 26, creatinine 1.29, glucose 105. Liver function tests unremarkable. Troponin less than 0.02. Hip x-ray shows left femur intertrochanteric fracture. Impression: 1. Left femur intertrochanteric fracture. 2. Impaired fasting glucose. 3. Hypertension. 4. Hyperlipidemia. 5. Osteoporosis. 6. Benign prostatic hypertrophy. 7. Gastroesophageal reflux disease. 8. Insomnia. Plan: Admit the patient to hospital for further evaluation and management of this problem. The patient is appropriate for inpatient and is expected to spend 2 midnights in hospital. We will consult orthopedic surgeon for surgical repair. The patient will remain n.p.o. DVT prophylaxis will be given per order. Pain medications will be given per order. We will go ahead and give IV fluid. Details and plan of treatment discussed with the patient. FLY/BHUMIKA Voice ID: [id number] MTDD
[2020-06-19] MEDS ORDERED: KETOROLAC 30 MG/ML INJ ONE (12:19)
[2020-06-19] MEDS ORDERED: MORPHINE 10 MG/ML VIAL ONE (12:35)
--- NOTE | 2020-06-19 12:42 | P.BOP ---
Preoperative diagnosis: left IT fracture Postoperative diagnosis: same Primary procedure: GALDINO florentino left hip Estimated blood loss: 50ccs Anesthesia: General Complications: None Transferred to: Recovery Room Condition: Good
--- NOTE | 2020-06-19 12:54 | RAD REPORT ---
EXAM DESCRIPTION: RAD - Hip In Or - 06/19/2020 12:44 pm CLINICAL HISTORY: LT HIP RODDING COMPARISON: No comparisons FINDINGS: Fluoroscopy time 1.7 minutes
--- NOTE | 2020-06-19 13:06 | OP ---
Date of Procedure: 06/19/2020 Surgeon: Froilan Oakes MD Preoperative Diagnosis: Left displaced intertrochanteric fracture. Postoperative Diagnosis: Left displaced intertrochanteric fracture. Procedure: Left hip closed reduction, intramedullary florentino fixation. Estimated Blood Loss: 50 cc. Complications: There were no complications. Specimen: No pathology specimen sent. Indications For Operation: Mr. Hayward is an 80-year-old male who unfortunately fell injuring his le ft lower extremity. He was seen and examined in the Emergency Department where he was ruled out for other injuries; however, he is complaining of some back pain as well as hip pain. X-rays taken of hi s hip, which demonstrate a displaced intertrochanteric fracture on the left. No x-rays were taken of his back at the time of consultation, however, since then x-rays were taken of back which did not re veal any fractures or dislocations. Risks, benefits, and alternatives to closed reduction, intramedu llary florentino fixation of the hip discussed both with the patient and family. They state they understand things as presented and wished to proceed. Description Of Procedure: The patient was taken to the operating room and placed in supine position. General anesthesia was obtained by staff. Following this, he was then transferred to the fracture table. He has then appropriate line on the fracture table and set up for good AP and lateral x-rays. Following this, the left lower extremity was then prepped and draped in usual sterile fashion. An incision made just proximal to the greater trochanter, it was taken down carefully through skin and s oft tissues. Meticulous hemostasis being maintained using Bovie electrocautery this leads through th e greater trochanter. Incision was made to place the intraportal slightly more medial than the troch anter and this does cause a little bit of valgus of the hip, however, definitely able to place the gu cass pin without difficulty. This followed by over reaming with a k9 handler. The nail was then tera gina at appropriate depth and biplanar C-arm radiography were used to place 2 cephalomedullary screws without difficulty. This followed by placement of the distal interlocking screws. The wound was the n irrigated and the fascia was closed in a watertight fashion using Vicryl sutures, followed by closu re of the skin with Vicryl followed by liss. The patient was then awakened, and taken to the mary very in good condition. No complications. SE/MODL Voice ID: [id number] Report ID: [id number]
--- NOTE | 2020-06-19 13:15 | CON ---
Date of Consultation: 06/19/2020 This is my first time seeing this patient. To my knowledge he is an 80-year-old gentleman who unfort unately fell injuring his left lower extremity. He was seen and examined in the Emergency Department , where he was ruled out for other injuries; however x-rays demonstrated displaced intertrochanteric fracture on the left. Physical Examination: He has no pain with palpation with the exception of his having complaining of significant spasm of hi s low back. Also complaining of pain in his left hip. He has not had any x-rays of his hip. Therefore, we will order these. However, it is assumed that ro mejia most likely does not have a fracture, though we will review these prior to the surgery and he is ne urovascularly intact to the lower extremities. He does have pain in his hip. Risks, benefits, and a lternatives to closed reduction and intramedullary florentino fixation of his left hip discussed with the pa nicole and family. They state they understand things as presented and wished to proceed. /BHUMIKA Voice ID: [id number] Report ID: [id number]
[2020-06-19] MEDS: MORPHINE 4 MG/ML SYR ONE ×2 (13:17→13:22)
[2020-06-19] MEDS ORDERED: ONDANSETRON 4 MG/2 ML VIAL ONE (13:29)
[2020-06-19] MEDS: ACETAMINOPHEN 500 MG TAB PO PRN ×2 (14:23→20:44)
[2020-06-19] MEDS: CEFAZOLIN/SWI 1gm 1 GM/10 ML SYR IVP SCH (17:08)
[2020-06-19] MEDS ORDERED: TAMSULOSIN 0.4 MG SR CAP PO SCH (21:00)
[2020-06-20] MEDS: CEFAZOLIN/SWI 1gm 1 GM/10 ML SYR IVP SCH ×2 (02:03→09:35)
[2020-06-20] MEDS: ACETAMINOPHEN 500 MG TAB PO PRN (04:08)
[2020-06-20] MEDS ORDERED: MAGNESIUM HYDROXIDE 8% 30 ML PO PRN (07:07)
[2020-06-20 07:41] LABS: Absolute Lymphocytes (CBC) 1.3 K/uL (0.7-4.9); Basophils % 0.6 % (0-1.3); Hematocrit 27.2 % (39.6-49.0); Lymphocytes % 16.4 % (15.3-44.8); MPV 7.9 fL (7.6-11.3); RBC Red Blood Cell Count 2.94 M/uL (4.33-5.43)
--- NOTE | 2020-06-20 08:31 | PN ---
Date of Progress Note: 06/20/2020 Subjective: The patient was seen this morning for followup. He was doing fine this morning. Only c omplaint he has is muscle spasm in his back from time to time. Denies any pain in his left hip. He had hip surgery done yesterday and Dr. Oakes did call and discuss details with me after surgery. Patient has done well overnight except last night he had urinary retention, nurse contacted and info rmed me that the patient had approximately between 600-700 cc of urine as per bladder scan and order was given for Hurd catheter placement and, as soon as the Hurd catheter was placed, we obtained 600 cc of urine and there was still some more urine, so catheter was clamped and altogether for the nigh t shift he had about 900 cc of urine. His urine is clear yellow in nature. Denies any abdominal liliane n, nausea, vomiting. His last bowel movement was Friday. Patient says at home he has bowel moveme nt about every 2-3 days or so. No chest pain. No shortness of breath. Objective: Vital Signs: Reviewed. HEENT: Unremarkable. Lungs: Clear to auscultation. Heart: Sounds normal. Abdomen: Soft. Bowel sounds normal. No guarding, rigidity, tenderness, or distention. Extremities: No leg edema. Presence of SCD in the right leg. : Presence of Hurd catheter, draining clear yellow urine. Impression: 1.Left hip intertrochanteric fracture, status post surgery. 2.Back pain. 3.Hypertension. 4.Benign prostatic hypertrophy with urinary retention. 5.Anemia due to acute blood loss. Plan: We will go ahead and continue to leave the Hurd catheter in place another day or two days and then we will try to take it out. He is on Flomax 0.4 mg daily. We will increase the dose to 0.4 mg 2 times a day. His lumbar spine x-ray from yesterday showed no evidence of fracture, showed some os teophytes and osteoporosis. We will go ahead and give him a muscle relaxant per order for back muscl e spasm. Continue pain medications per order. DVT prophylaxis will be started using Eliquis 2.5 mg 2 times a day. We will continue antihypertensive medication and we will see him tomorrow for followu p. Details and plan of treatment discussed with the patient. We will also start stool softener. FLY/MODL Voice ID: [id number] Report ID: [id number]
[2020-06-20] MEDS: TAMSULOSIN 0.4 MG SR CAP PO SCH ×2 (09:35→21:17)
[2020-06-20] MEDS: CYCLOBENZAPRINE 10 MG TAB PO SCH ×2 (09:36→21:16)
[2020-06-20] MEDS: APIXABAN 2.5 MG TABLET PO SCH ×2 (09:36→21:18)
[2020-06-20] MEDS: VALSARTAN 40 MG TAB PO SCH (09:38)
[2020-06-20] MEDS: MORPHINE 2 MG/ML SYR IM PRN (21:16)
[2020-06-20] MEDS: DOCUSATE NA/SENNA CONC 1 TAB PO SCH (21:17)
[2020-06-21 05:45] LABS: Absolute Lymphocytes (CBC) 1.5 K/uL (0.7-4.9); Basophils % 0.8 % (0-1.3); Lymphocytes % 18.4 % (15.3-44.8); MPV 7.9 fL (7.6-11.3); Magnesium 2.2 mg/dL (1.8-2.4); Potassium 3.5 mmol/L (3.5-5.1); RBC Red Blood Cell Count 2.82 M/uL (4.33-5.43)
[2020-06-21] MEDS: MORPHINE 2 MG/ML SYR IM PRN (08:40)
[2020-06-21] MEDS: VALSARTAN 40 MG TAB PO SCH (08:41)
[2020-06-21] MEDS: FE SULF/FA/VIT B COMP & C TAB PO SCH (08:41)
[2020-06-21] MEDS: CYCLOBENZAPRINE 10 MG TAB PO SCH ×2 (08:41→20:50)
[2020-06-21] MEDS: APIXABAN 2.5 MG TABLET PO SCH ×2 (08:42→20:51)
[2020-06-21] MEDS: TAMSULOSIN 0.4 MG SR CAP PO SCH ×2 (08:42→20:51)
--- NOTE | 2020-06-21 09:41 | PN ---
Date of Progress Note: 06/21/2020 Subjective: Patient was seen this morning for followup. He was lying in bed, not in distress. James morin continues to have spasm in the back muscles but muscle relaxant is helping minimally, but not to an y significant extent but overall feels better. Denies any hip pain. He did participate with physica l therapy yesterday. No bowel movement yet. Objective: Vital signs: Reviewed. This morning, temperature 99, pulse 75, respiratory rate 16, blo od pressure 125/59. HEENT: Unremarkable. Lungs: Clear to auscultation. Heart: Sounds normal. Abdomen: Soft. Bowel sounds normal. No guarding, rigidity, tenderness, distention. Extremities: No leg edema. : Presence of Hurd catheter with clear yellow urine. Laboratory Data: White count 8.2, hemoglobin 8.9, platelets 132. Sodium 140, potassium 3.5, chlorid e 109, bicarb 29, BUN 13, creatinine 0.90, glucose 106, magnesium 2.2. Impression: 1.Left femur intertrochanteric fracture. 2.Anemia due to acute blood loss. 3.Thrombocytopenia. 4.Hypertension. 5.Constipation. 6.Benign prostatic hypertrophy with urinary retention. Plan: Patient has a Hurd catheter. We will try to remove it today. We will continue tamsulosin 0. 4 mg 2 times a day, and we will continue Eliquis for DVT prophylaxis. Continue Senokot-S per order a nd continue current antihypertensive medication and follow up with Physical Therapy. Rehab decision is pending. We will start the patient on iron supplement per order . FLY/MODL Voice ID: [id number] Report ID: [id number]
[2020-06-21] MEDS: CODEINE 30MG/APAP 300MG TAB PO PRN (13:38)
[2020-06-21] MEDS: DOCUSATE NA/SENNA CONC 1 TAB PO SCH (20:51)
[2020-06-22 06:42] LABS: Absolute Lymphocytes (CBC) 1.4 K/uL (0.7-4.9); Basophils % 0.6 % (0-1.3); Hematocrit 26.2 % (39.6-49.0); Lymphocytes % 18.6 % (15.3-44.8); MPV 7.7 fL (7.6-11.3); RBC Red Blood Cell Count 2.84 M/uL (4.33-5.43)
[2020-06-22] MEDS ORDERED: BISACODYL 10 MG RECTAL SUPP PR ONE (07:40)
[2020-06-22] MEDS: CODEINE 30MG/APAP 300MG TAB PO PRN (09:03)
[2020-06-22] MEDS: TAMSULOSIN 0.4 MG SR CAP PO SCH ×2 (09:04→21:49)
[2020-06-22] MEDS: FE SULF/FA/VIT B COMP & C TAB PO SCH (09:04)
[2020-06-22] MEDS: CYCLOBENZAPRINE 10 MG TAB PO SCH ×2 (09:04→21:48)
[2020-06-22] MEDS: VALSARTAN 40 MG TAB PO SCH (09:05)
[2020-06-22] MEDS: APIXABAN 2.5 MG TABLET PO SCH ×2 (09:05→21:49)
[2020-06-22 09:41] LABS: Urine Appearance CLEAR; Urine Bilirubin NEGATIVE (NEG); Urine Blood NEGATIVE (NEG); Urine Color YELLOW; Urine Glucose NEGATIVE (NEG); Urine Protein NEGATIVE (NEG); Urine Urobilinogen 0.2 mg/dL (0.2-1.0); Urine pH 7.5 (5.0-7.0)
[2020-06-22 10:18] LABS: Urine Bacteria 20-50 /HPF (NONE SEEN); Urine Culture Reflex Order REFLEXED
[2020-06-22] MEDS: DOCUSATE NA/SENNA CONC 1 TAB PO SCH (21:47)
[2020-06-23] MEDS: TAMSULOSIN 0.4 MG SR CAP PO SCH ×2 (08:02→20:13)
[2020-06-23] MEDS: APIXABAN 2.5 MG TABLET PO SCH ×2 (08:02→20:14)
[2020-06-23] MEDS: VALSARTAN 40 MG TAB PO SCH (08:02)
[2020-06-23] MEDS: CYCLOBENZAPRINE 10 MG TAB PO SCH ×2 (08:02→20:13)
[2020-06-23] MEDS: FE SULF/FA/VIT B COMP & C TAB PO SCH (08:02)
[2020-06-23] MEDS ORDERED: MAGNESIUM HYDROXIDE 8% 30 ML PO ONE (12:34)
[2020-06-23] MEDS ORDERED: BISACODYL 10 MG RECTAL SUPP PR ONE (12:34)
[2020-06-23] MEDS: CODEINE 30MG/APAP 300MG TAB PO PRN (12:52)
--- NOTE | 2020-06-23 15:01 | PN ---
Date of Progress Note: 06/22/2020 Subjective: Patient was seen for followup in the morning. No new complaints or problems reported. Still has not had a bowel movement. Denies any abdominal pain, nausea, vomiting. Back muscle spasm is better. Hip pain is under good control with current medications. Objective: Vital Signs: Reviewed. HEENT: Examination unremarkable. Lungs: Clear to auscultation. Heart: Sounds normal. Abdomen: Soft. Bowel sounds normal. No guarding, rigidity, tenderness, or distention. Extremities: No leg edema. Laboratory Data: White count 7.5, hemoglobin 8.8, platelets 160. Impression: 1. Left hip intertrochanteric fracture. 2. Anemia due to acute blood loss. 3. Constipation. 4. Hypertension. Plan: We will continue current medication. Continue DVT prophylaxis and pain medications and we will go ahead and give 1 dose of Dulcolax rectal suppository and milk of magnesia was ordered for p.r.n. use. Continue Senokot S at bedtime and we will continue physical therapy. I was notified by Social Service that the patient's insurance company has refused for him to go to rehab and I did contact and left a message for insurance company to call me back so I can communicate with the insurance physician for [id number] review. FLY/MODL Voice ID: [id number] Report ID: [id number] MTDD
--- NOTE | 2020-06-23 16:10 | PN ---
Date of Progress Note: 06/23/2020 Subjective: The patient was seen this morning for followup. He was lying in bed, not in distress. Reports that his back pain and muscle spasm is significantly better than before. Left hip pain is well controlled with pain medications. The patient still has not had a bowel movement since his admission. Last bowel movement was before he came into the hospital and it was last weekend on Friday. He denies any abdominal pain, nausea, vomiting. Has a good appetite. Objective: Vital Signs: Reviewed. HEENT: Examination unremarkable. Lungs: Clear to auscultation. Heart: Sounds normal. Abdomen: Soft. Bowel sounds normal. No guarding, rigidity, tenderness, or distention. Extremities: No leg edema. Impression: 1. Left hip intertrochanteric fracture. 2. Anemia due to acute blood loss. 3. Hypertension. Plan: We will go ahead and continue current medications. Continue current anticoagulation therapy, pain medications and antihypertensive medication. We will give 1 more dulcolax suppository and 1 dose of milk of magnesia today. He is going to have his bring some prunes from home. I have reached out to his insurance company once again today, left a message to do [id number] appeal process today since insurance company is denying inpatient rehab benefits. FLY/MODL Voice ID: [id number] Report ID: [id number] WALLACE
[2020-06-23] MEDS: DOCUSATE NA/SENNA CONC 1 TAB PO SCH (20:13)
[2020-06-23 23:30] VITALS: O2SAT 98
[2020-06-24 07:21] LABS: Absolute Lymphocytes (CBC) 1.1 K/uL (0.7-4.9); Basophils % 0.9 % (0-1.3); Hematocrit 25.3 % (39.6-49.0); Lymphocytes % 18.7 % (15.3-44.8); MPV 7.4 fL (7.6-11.3); RBC Red Blood Cell Count 2.74 M/uL (4.33-5.43)
[2020-06-24 07:23] LABS: Magnesium 2.3 mg/dL (1.8-2.4)
[2020-06-24] MEDS: VALSARTAN 40 MG TAB PO SCH (08:53)
[2020-06-24] MEDS: FE SULF/FA/VIT B COMP & C TAB PO SCH (08:55)
[2020-06-24] MEDS: APIXABAN 2.5 MG TABLET PO SCH (08:55)
[2020-06-24] MEDS: CYCLOBENZAPRINE 10 MG TAB PO SCH (08:55)
[2020-06-24] MEDS: TAMSULOSIN 0.4 MG SR CAP PO SCH (08:55)
[2020-06-24] MEDS: CODEINE 30MG/APAP 300MG TAB PO PRN (09:00)
--- NOTE | 2020-06-24 12:16 | DS ---
Date of Discharge: 06/24/2020 Disposition: Discharged to go home. Physical Examination: HEENT: Unremarkable. LUNGS: Clear to auscultation. HEART: Sounds normal. ABDOMEN: Soft, bowel sounds normal. No guarding, rigidity, tenderness, or distention. EXTREMITIES: No leg edema. Laboratory Data: On admission on 06/18/2020, white count 5.3, hemoglobin 12.7, platelets 170. [place] t platelet count during this hospital stay was on 06/20/2020 and it was 130 and lowest hemoglobin was today and it was 8.4. Today, CBC shows white count 6.1, hemoglobin 8.4, platelets 211, and his hemo globin has remained between 8-9 range for last 4-5 days. Day before yesterday hemoglobin was 8.8 and day prior to that it was 8.9. Chemistry today; sodium 141, potassium 4, chloride 109, bicarb 29, BU N 16, creatinine 0.84, glucose 103, magnesium 2.3. Hospital Course: This is an 80-year-old pleasant male patient who fell down and was brought into the emergency room. After he was evaluated in the ER, he was admitted to the hospital with left hip int ertrochanteric fracture. Patient was kept n.p.o. and Dr. Oakes Orthopedic surgery saw him and th e patient had surgery day after admission to the hospital. Postoperatively he has done well. His pa in is under good control with pain medications. Physical Therapy was consulted and Physical Therapy started providing therapy as per instruction from Dr. Oakes and weightbearing status is touchdown weightbearing. He has a history of constipation. Normally, he has a bowel movement about every 3-4 days and his last bowel movement prior to admission was 1 week ago on Friday and he did not have a ny bowel movement until 1 bowel movement last night and 1 this morning. He does not have any abdomin al pain, nausea, vomiting. He is receiving stool softener and at home he controls his constipation w ith prunes. He did not require any blood transfusion. Rehab was consulted and the patient's [employer] company denied inpatient rehab and I did talk to patient's insurance company's medical review coordinator ye sterday to do peer to peer review and he was still denied after that. [employer] company did approve him to go to senior living facility. When I talked to patient and his today, they both inform ed me that they do not want to go to correction and in last couple of days he has made progress wit h physical therapy and ambulating better than before. He is independent about getting in and out of bed and going to the bathroom, so when he goes home he will have home health and home physical therap y that we will make arrangements for. His other medical problems remained stable. I did inform him to resume his alendronate in 1 month. Final Diagnoses: 1.Left hip intertrochanteric fracture, status post surgery. 2.Acute blood loss anemia. 3.Constipation, chronic. 4.Hypertension. 5.Osteoporosis. 6.Benign prostatic hypertrophy with urinary retention. Hospital Course: The patient did have urinary retention after surgery and he did require placement o f Hurd catheter for about 2 days and is normally taking tamsulosin 0.4 mg once a day at home and dur ing this hospital stay, we gave him 2 times a day and after 2 days of Hurd catheter, we did remove i t and he is able to void on his own without any difficulty. Discharge Medications And Instructions: 1.Continue home medication. 2.Eliquis 2.5 mg take 1 tablet by mouth 2 times a day for 3 weeks. 3.Tylenol with Codeine No.3, the patient to take 1 tablet every 6 hours as needed for pain and presc ription written for 30 tablets, no refill. 4.Ferrous sulfate 325 mg p.o. daily for 3 months. 5.Senokot-S 2 tablets by mouth at bedtime. 6.Tylenol 500 mg every 6 hours as needed for pain. 7.Follow with Dr. Oakes in 1-2 weeks and the patient to call his office on Friday for appointment. 8.Follow up at my office next week on . FLY/MODL Voice ID: [id number] Report ID: [id number]
[2020-06-24 13:48] VITALS: BP 100/51; TEMP 97.7
== END 2020-06-24 16:02 | disposition home health service (06) | DRG 481 ==
LOC: ER 16:11 → ERHOLD 18:14 → 2ND 19:38
PROVIDERS: ADMIT Internal Medicine; ATTEND Internal Medicine
PROC: 0QS706Z Reposition Left Upper Femur with Intramedullary Internal Fixation Device, Open Approach (ICD-10-PCS; principal; 2020-06-19 11:30)
DX: S72.142A Displaced intertrochanteric fracture of left femur, initial encounter for closed fracture (principal); D62 Acute posthemorrhagic anemia; I10 Essential (primary) hypertension; E78.5 Hyperlipidemia, unspecified; K21.9 Gastro-esophageal reflux disease without esophagitis; K59.09 Other constipation; M81.0 Age-related osteoporosis without current pathological fracture; N40.0 Benign prostatic hyperplasia without lower urinary tract symptoms; G47.00 Insomnia, unspecified; M54.9 Dorsalgia, unspecified; D69.6 Thrombocytopenia, unspecified; R33.9 Retention of urine, unspecified; R73.02 Impaired glucose tolerance (oral); W18.30XA Fall on same level, unspecified, initial encounter; Z79.82 Long term (current) use of aspirin; Z96.0 Presence of urogenital implants; Z20.828 Contact with and (suspected) exposure to other viral communicable diseases
CPT/HCPCS: 36415; 71045; 72100; 73530; 80048; 80053; 81001; 83735; 84484; 85025; 85610; 85730; 87086; 87088; 93005; 96374; 96375; 97110; 97116; 97161; 97530; 99285; G0390; J0690; J2250; J2270; J2405; J2704; J3010; J3360; J7042; J7120; U0002

== ENCOUNTER 2023-02-14 12:22 | Emergency (ER) | payer OTHER ==
--- OUTSIDE RECORDS SUMMARY | 2023-02-14 12:25 | XMS REPORT | Continuity of Care Document ---
:1940 Author Organization [facility] t Address [address] [place] [address] [address] [place] [address] Care Team Providers Name Role Phone Harley Zhang MD Primary Care Physician Harley Zhang Attending Clinician Unavailable JIM BROWN Attending Clinician Unavailable Edward MEDINA, Dillan Pedraza Attending Clinician [phone] TONE GARCIA Attending Clinician Unavailable IVY HEBERT Attending Clinician Unavailable Hai Mc MD Attending Clinician Doctor Unassigned, [place] Attending Clinician Unavailable Payers Payer Name Policy Type Policy Number Effective Date Expiration Date S ource Problems Condition Condition Condition Status Onset Resolution Last Treating Co mments Source Name Details Category Date Date Treatment Clinician Date 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 SOB SOB Disease Active Methodi (shortness (shortness 9-29 st of breath) of breath) 00:00: Ho spita 00 l 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 9-[address] sterolemia sterolemia 00:00: Ho spita 00 l 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 00:00: Hospit a 00 l Primary Primary Disease Active Methodi hypertensi hypertensi 2-14 st on on 00:00: Hospita 00 l Renovascul Renovascul Disease Active M ethodi ar ar 2-14 st hypertensi hypertensi 00:00: Ho spita on on l Palpitatio Palpitatio Disease Active M ethodi n n 2-14 st 00:00: Hospita 00 l [id number] 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 [facility] [id number] Nodular Problem Active Comm on prostate [facility] [id number] Spermatoce Problem Active Com mon le of [facility] epididymis [facility] [id number] Elevated Problem Active Comm on PSA [facility] Allergies, Adverse Reactions, Alerts Allergy Allergy Status Severity Reaction(s) Onset Inactive Treating Comm ents Source Name Type Date Date Clinician No Known Propensi Active Method i Drug ty to st Allergie adverse Hospita s reaction l s to drug Family History Family Member Diagnosis Comments Start Date Stop Date Source Natural mother Stroke [facility] Natural sister Cancer [facility] Natural sister Heart attack [facility] Natural father Cancer [facility] Social History Social Habit Start Date Stop Date Quantity Comments Source Gender identity 2020-09-29 Identifies as Method ist 18:01:46 male gender [facility] (finding) Sexual orientation Method [facility] History of Tobacco [facility] - Use [facility] Sex Assigned At Common Sp emeterio - [facility] Alcohol intake 2022-01-29 2022-01-29 Current Restorationist 00:00:00 00:00:00 non-drinker of Hospital alcohol (finding) History of Social 2022-01-29 2022-01-[address] function 00:00:00 00:00:00 Hospital Tobacco use and 2021-03-01 2021-03-01 Smokeless tobacco Me thodist exposure 00:00:00 00:00:00 non-user Hospital Smoking Status Start Date Stop Date Source Never Smoker [facility] Medications Ordered Filled Start Stop Current Ordering Indication Dosage Frequency Signature Comments Components Source Medication Medication Date Date Medication? Clinician (SIG) Name Name acetaminoph Yes 1 tablet Me thodi en 5-[address] (TylenoL) 10:37: Orally Hospit a 325 MG 10 every 4 l tablet hrs aspirin Yes 81mg QD Take 1 Methodi (ECOTRIN) 5-23 tablet (81 st 81 MG 10:36: mg total) Hospita enteric 37 by mouth l coated daily. tablet multivitami Yes 1{tbl} QD Take 1 Me thodi n 5-[address] (THERAGRAN) 10:36: mouth Hospi ta tablet 37 daily. l tamsulosin Yes .4mg QD Take 1 Metho di (FLOMAX) 5-[address] 0.4 mg 10:36: (0.4 mg Hospita capsule 37 total) by l mouth daily with dinner. tumeric-gin Yes Take by Met hodi g-olive-ore 5-[address] g-capryl 10:36: Hospita 100 mg-150 37 l mg- 50 mg-150 mg capsule aspirin 2021-09 Yes 81mg QD Take 81 mg Meth [place] (ECOTRIN) 0-[address] 81 MG 13:01: daily. Hospita enteric 31 l coated tablet multivitami 2021-09 Yes 1{tbl} QD Take 1 Me thodi n 0-[address] (THERAGRAN) 13:01: mouth Hospi ta tablet 31 daily. l tamsulosin 2021-09 Yes .4mg QD Take 0.4 Met hodi (FLOMAX) 0-[address] 0.4 mg 13:01: mouth Hospita capsule 31 daily with l dinner. tumeric-gin 2021-09 Yes Take by Met hodi g-olive-ore 0-[address] g-capryl 13:01: Hospita 100 mg-150 31 l mg- 50 mg-150 mg capsule aspirin 2021-09 Yes 81mg QD Take 81 mg Meth [place] (ECOTRIN) 0-[address] 81 MG 13:01: daily. Hospita enteric 31 l coated tablet multivitami 2021-09 Yes 1{tbl} QD Take 1 Me thodi n 0-[address] (THERAGRAN) 13:01: mouth Hospi ta tablet 31 daily. l tamsulosin 2021-09 Yes .4mg QD Take 0.4 Met hodi (FLOMAX) 0-[address] 0.4 mg 13:01: mouth Hospita capsule 31 daily with l dinner. tumeric-gin 2021-09 Yes Take by Met hodi g-olive-ore 0-[address] g-capryl 13:01: Hospita 100 mg-150 31 l mg- 50 mg-150 mg capsule aspirin 2021-09 Yes 81mg QD Take 81 mg Meth [place] (ECOTRIN) 0-[address] 81 MG 13:01: daily. Hospita enteric 31 l coated tablet multivitami 2021-09 Yes 1{tbl} QD Take 1 Me thodi n 0-25 tablet by [facility] 13:01: mouth Hospi ta tablet 31 daily. l tamsulosin 2021-09 Yes .4mg QD Take 0.4 Met hodi (FLOMAX) 0-[address] 0.4 mg 13:01: mouth Hospita capsule 31 daily with l dinner. tumeric-gin 2021-09 Yes Take by Met hodi g-olive-ore 0-[address] g-capryl 13:01: Hospita 100 mg-150 31 l mg- 50 mg-150 mg capsule aspirin 2021-09 Yes 81mg QD Take 81 mg Meth [place] (ECOTRIN) 0-[address] 81 MG 13:01: daily. Hospita enteric 31 l coated tablet multivitami 2021-09 Yes 1{tbl} QD Take 1 Me thodi n 0-25 tablet by [facility] 13:01: mouth Hospi ta tablet 31 daily. l tamsulosin 2021-09 Yes .4mg QD Take 0.4 Met hodi (FLOMAX) 0-[address] 0.4 mg 13:01: mouth Hospita capsule 31 daily with l dinner. tumeric-gin 2021-09 Yes Take by Met hodi g-olive-ore 0-[address] g-capryl 13:01: Hospita 100 mg-150 31 l mg- 50 mg-150 mg capsule Lactobacill Yes Method i us combo 05-09 st no.13 00:00: Hospita (PROBIOTIC 00 l PEARLS COMPLETE ORAL) Lactobacill 2021-0 Yes Method i us combo 05-09 st no.13 00:00: Hospita (PROBIOTIC 00 l PEARLS COMPLETE ORAL) Lactobacill 2-0 Yes Method i us combo 05-09 st no.13 00:00: Hospita (PROBIOTIC 00 l PEARLS COMPLETE ORAL) Lactobacill 2021-0 Yes Method i us combo 05-09 st no.13 00:00: Hospita (PROBIOTIC 00 l PEARLS COMPLETE ORAL) Lactobacill 2021-0 3- No Metho di us combo 05-09 st no.13 00:00: 00:00 Hospita (PROBIOTIC 00 :00 l PEARLS COMPLETE ORAL) sennosides- 2-0 Yes Method i docusate 8-31 st sodium 00:00: Hospita 8.6-50 mg 00 l capsule sennosides- 2022-0 Yes Method i docusate 8-31 st sodium 00:00: Hospita 8.6-50 mg 00 l capsule sennosides- 2022-0 Yes Method i docusate 8-31 st sodium 00:00: Hospita 8.6-50 mg 00 l capsule sennosides- 2022-0 Yes Method i docusate 8-31 st sodium 00:00: Hospita 8.6-50 mg 00 l capsule sennosides- 2022-0 3- No Metho di docusate 8-31 - st sodium 00:00: 00:00 Hospita 8.6-50 mg 00 :00 l capsule finasteride 2022-0 Yes Method i -tadalafil 8-10 st 5-5 mg 00:00: Hospita capsule 00 l finasteride 2022-0 Yes Method i -tadalafil 8-10 st 5-5 mg 00:00: Hospita capsule 00 l finasteride 2022-0 Yes Method i -tadalafil 8-10 st 5-5 mg 00:00: Hospita capsule 00 l finasteride 2022-0 Yes Method i -tadalafil 8-10 st 5-5 mg 00:00: Hospita capsule 00 l finasteride 2022-0 Yes Method i -tadalafil 8-10 st 5-5 mg 00:00: Hospita capsule 00 l Proscar 5 Proscar 5 2021-0 3- No 1{table QD Proscar 5 MG MG 8- 09-03 t} MG 00:00: 00:00 00 :00 valsartan-h 2018-09 Yes Method i ydrochlorot - st hiazide 00:00: Hospita (DIOVAN-HCT 00 l ) 80-12.5 mg per tablet valsartan-h 2018-09 Yes Method i ydrochlorot - st hiazide 00:00: Hospita (DIOVAN-HCT 00 l ) 80-12.5 mg per tablet valsartan-h 2018-09 Yes Method i ydrochlorot - st hiazide 00:00: Hospita (DIOVAN-HCT 00 l ) 80-12.5 mg per tablet valsartan-h 2018-09 Yes Method i ydrochlorot - st hiazide 00:00: Hospita (DIOVAN-HCT 00 l ) 80-12.5 mg per tablet valsartan-h 2018-09 Yes Method i ydrochlorot - st hiazide 00:00: Hospita (DIOVAN-HCT 00 l ) 80-12.5 mg per tablet calcium 2018- Yes Methodi phosphate 1-15 st trib/vit D3 00:00: Hospit a (CITRACAL + 00 l D3, CALCIUM PHOS, ORAL) calcium Yes Methodi phosphate 1-15 st trib/vit D3 00:00: Hospit a (CITRACAL + 00 l D3, CALCIUM PHOS, ORAL) calcium 2018- Yes Methodi phosphate 1-15 st trib/vit D3 00:00: Hospit a (CITRACAL + 00 l D3, CALCIUM PHOS, ORAL) calcium 2019- Yes Methodi phosphate 1-15 st trib/vit D3 00:00: Hospit a (CITRACAL + 00 l D3, CALCIUM PHOS, ORAL) calcium 2018- Yes Methodi phosphate 1-15 st trib/vit D3 00:00: Hospit a (CITRACAL + 00 l D3, CALCIUM PHOS, ORAL) FLUZONE 2017-09 Yes TO BE Methodi HIGH-DOSE 0-[address] , 00:00: ED BY Hospita PF, 180 00 PHARMACIST l mcg/0.5 mL FOR syringe IM IMMUNIZATI injection ON ZONE 2017-09 Yes TO BE Methodi HIGH-DOSE 0-12 ADMINISTER , 00:00: ED BY [facility], 180 00 PHARMACIST l mcg/0.5 mL FOR syringe IM IMMUNIZATI injection ON NE 2017-09 Yes TO BE Methodi HIGH-DOSE 0-12 ADMINISTER , 00:00: ED BY [facility], 180 00 PHARMACIST l mcg/0.5 mL FOR syringe IM IMMUNIZATI injection ON 2017-09 Yes TO BE Methodi HIGH-DOSE 0-12 ADMINISTER , 00:00: ED BY [facility], 180 00 PHARMACIST l mcg/0.5 mL FOR syringe IM IMMUNIZATI injection ON NE 2017-09- No TO BE Methodi HIGH-DOSE 0-12 01-28 ADMINISTER , 00:00: 00:00 ED BY [facility] PF, 180 00 :00 PHARMACIST l mcg/0.5 mL FOR syringe IM IMMUNIZATI injection ON risedronate 2015-09 Yes TAKE 1 Meth [place] (ACTONEL) 2-[address] 150 MG 00:00: ORAL ROUTE Hospi ta tablet 00 EVERY l MONTH IN MORNING WITH 8OZ WATER risedronate 2015-09 Yes TAKE 1 Meth [place] (ACTONEL) 2-[address] 150 MG 00:00: ORAL ROUTE Hospi ta tablet 00 EVERY l MONTH IN MORNING WITH 8OZ WATER risedronate 2015-09 Yes TAKE 1 Meth [place] (ACTONEL) 2-[address] 150 MG 00:00: ORAL ROUTE Hospi ta tablet 00 EVERY l MONTH IN MORNING WITH 8OZ WATER risedronate 2015-09 Yes TAKE 1 Meth [place] (ACTONEL) 2-[address] 150 MG 00:00: ORAL ROUTE Hospi ta tablet 00 EVERY l MONTH IN MORNING WITH 8OZ WATER risedronate 2015-09 Yes TAKE 1 Meth [place] (ACTONEL) 2-[address] 150 MG 00:00: ORAL ROUTE Hospi ta tablet 00 EVERY l MONTH IN MORNING WITH 8OZ WATER Risedronate Risedronate No Risedronat Sodium 150 Sodium 150 e Sodium MG MG 150 MG Tylenol 325 Tylenol 325 No 1{table 6xD Tylenol MG MG t_as_ne 325 MG eded} Multivitami Multivitami No 1{table QD Multivitam n - n - t} in - Aspirin 81 Aspirin 81 No 1{table QD Aspirin 81 81 MG 81 MG t} 81 MG Valsartan-h Valsartan-h No 1{table QD Valsartan- ydroCHLOROt ydroCHLOROt t} hydroCHLOR hiazide hiazide Othiazide 80-12.5 MG 80-12.5 MG 80-12.5 MG Citracal Citracal No Citracal +D3 +D3 +D3 250-107-500 250-107-500 250-107-50 MG-MG-UNIT MG-MG-UNIT 0 MG-MG-UNIT Turmeric Turmeric No Turmeric 500 MG 500 MG 500 MG Flomax 0.4 Flomax 0.4 2022- No 1{capsu BID Flomax 0.4 MG MG 04-11} MG 00:00 :00 Immunizations Ordered Immunization Filled Immunization Date Status Commen ts Source Name Name PFIZER COVID-19 MRNA 2020-11-07 Completed Meth odist VACCINATION 00:00:00 [facility] PFIZER COVID-19 MRNA 2020-11-07 Completed Meth odist VACCINATION 00:00:00 [facility] PFIZER COVID-19 MRNA 2020-11-07 Completed Meth odist VACCINATION 00:00:00 [facility] PFIZER COVID-19 MRNA 2020-11-07 Completed Meth odist VACCINATION 00:00:00 [facility] PFIZER COVID-19 MRNA 2020-11-07 Completed Meth odist VACCINATION 00:00:00 [facility] PFIZER COVID-19 MRNA 2020-10-17 Completed Meth odist VACCINATION 00:00:00 [facility] PFIZER COVID-19 MRNA 2020-10-17 Completed Meth odist VACCINATION 00:00:00 [facility] PFIZER COVID-19 MRNA 2020-10-17 Completed Meth odist VACCINATION 00:00:00 [facility] PFIZER COVID-19 MRNA 2020-10-17 Completed Meth odist VACCINATION 00:00:00 [facility] PFIZER COVID-19 MRNA 2020-10-17 Completed Meth odist VACCINATION 00:00:00 [facility] Vital Signs Vital Name Observation Time Observation Value Comments Source height 2022-04-16 10:45:00 68 [in_i] [facility] - [facility] weight 2022-04-16 10:45:00 145.4 [lb_av] [facility] - [facility] temperature 2022-04-16 10:45:00 98.7 [degF] [facility] bmi 2022-04-16 10:45:00 22.11 kg/m2 [facility] oximetry 2022-04-16 10:45:00 97 % [facility] respiratory rate 2022-04-16 10:45:00 16 /min Comm on [facility] blood pressure 2022-04-16 10:45:00 132 mm[Hg] Common [facility] systolic [facility] blood pressure 2022-04-16 10:45:00 68 mm[Hg] [facility] diastolic [facility] Systolic blood 2023-01-28 15:37:00 154 mm[Hg] Method [facility] Hospital pressure Diastolic blood 2023-01-28 15:37:00 67 mm[Hg] [facility] Hospital pressure Heart rate 2023-01-28 15:37:00 60 /min [facility] Body height 2023-01-28 15:37:[address] [facility] Body weight 2023-01-28 15:37:[address] [facility] BMI 2023-01-28 15:37:00 21.41 kg/m2 [facility] Systolic blood 2022-07-02 18:02:00 153 mm[Hg] Method [facility] Hospital pressure Diastolic blood 2022-07-02 18:02:00 66 mm[Hg] [facility] pressure Heart rate 2022-07-02 18:02:00 85 /min [facility] Body height 2022-07-02 18:02:[address] [facility] Body weight 2022-07-02 18:02:[address] [facility] BMI 2022-07-02 18:02:00 21.56 kg/m2 [facility] Procedures Procedure Date / Time Performed Performing Clinician Sour e CV STRESS TEST NUCLEAR 2023-02-12 19:55:16 Jim Browno [facility] CARDIO NM MYOCARDIAL PERFUSION 2023-02-12 19:55:16 [facility] ECG 12-LEAD 2022-07-02 18:04:46 Jim Brown spital ECG 12-LEAD 2022-01-29 19:36:02 Jim Brown spijeison Plan of Care Planned Activity Planned Date Details Comments Source Future Scheduled 2023-02-14 SHINGLES VACCINES (1 Met [facility] Test 09:08:32 of 2) [code = SHINGLES VACCINES (1 of 2)] Future Scheduled 2023-02-14 65+ [facility]AL [facility] 09:08:32 VACCINE (1 - PCV) [code = 65+ PNEUMOCOCCAL VACCINE (1 - PCV)] Future Scheduled 2023-02-14 COVID-19 VACCINE (3 - Me [facility] Hospital Test 09:08:32 Pfizer series) [code = COVID-19 VACCINE (3 - Pfizer series)] Future Scheduled 2023-02-14 INFLUENZA VACCINE Method [facility] Hospital Test 09:08:32 [code = INFLUENZA VACCINE] Future Scheduled 2022-09-12 SHINGLES VACCINES (1 Met [facility] Test 13:29:02 of 2) [code = SHINGLES VACCINES (1 of 2)] Future Scheduled 2022-09-12 COVID-19 VACCINE (3 - Me [facility] Hospital Test 13:29:02 Booster for Pfizer series) [code = COVID-19 VACCINE (3 - Booster for Pfizer series)] Future Scheduled 2022-09-12 65+ PNEUMOCOCCAL [facility] Test 13:29:02 VACCINE (1 - PCV) [code = 65+ PNEUMOCOCCAL VACCINE (1 - PCV)] Future Scheduled 2022-09-12 SHINGLES VACCINES (1 Met [facility] Test 13:29:02 of 2) [code = SHINGLES VACCINES (1 of 2)] Future Scheduled 2022-09-12 COVID-19 VACCINE (3 - Me [facility] Hospital Test 13:29:02 Booster for Pfizer series) [code = COVID-19 VACCINE (3 - Booster for Pfizer series)] Future Scheduled 2022-09-12 65+ [facility]OCOCCAL [facility] Test 13:29:02 VACCINE (1 - PCV) [code = 65+ PNEUMOCOCCAL VACCINE (1 - PCV)] Future Scheduled 2022-09-12 SHINGLES VACCINES (1 Met [facility] Test 13:29:02 of 2) [code = SHINGLES VACCINES (1 of 2)] Future Scheduled 2022-09-12 COVID-19 VACCINE (3 - Me [facility] Hospital Test 13:29:02 Booster for Pfizer series) [code = COVID-19 VACCINE (3 - Booster for Pfizer series)] Future Scheduled 2022-09-12 65+ PNEUMOCOCCAL Methodi [facility] Test 13:29:02 VACCINE (1 - PCV) [code = 65+ PNEUMOCOCCAL VACCINE (1 - PCV)] Future Scheduled 2022-09-11 65+ PNEUMOCOCCAL Methodi [facility] Test 17:53:12 VACCINE (1 - PCV) [code = 65+ PNEUMOCOCCAL VACCINE (1 - PCV)] Future Scheduled 2022-09-11 SHINGLES VACCINES (1 Met [facility] Test 17:53:12 of 2) [code = SHINGLES VACCINES (1 of 2)] Future Scheduled 2022-09-11 COVID-19 VACCINE (3 - Me [facility] Test 17:53:12 Booster for Pfizer series) [code = COVID-19 VACCINE (3 - Booster for Pfizer series)] Encounters Start End Encounter Admission Attending Care Care Encounter Source Date/Time Date/Time Type Type Clinicians Facility Department ID 2022-11-04 Outpatient Zhang, [facility] [id number] Common 16:19:01 [facility] 2022-11-01 Outpatient Zhang, [facility] [id number] Common 08:18:01 Harley [id number] [facility] 2022-04-17 Outpatient Zhang, [facility] [id number] Common 10:31:01 Harley [facility] 2022-04-16 Outpatient Zhang, [facility] [id number] Common 10:33:02 Harley [facility] 2023-02-11 2023-02-11 Travel 1.2.840.1 [id number] Methodi 00:00:00 00:00:[address] 3.430.2.7 0.2.7.3.698 Ho spita .3.026237 084.8 l .8 2023-02-11 2023-02-11 Outpatient [facility] [id number] [place] 00:00:00 00:00:00 JIM [address] 2023-01-28 2023-01-28 Office Kevin, 1.2.840.1 [id number] Methodi 10:10:00 14:43:00 Visit Jim Pelayo 47644.1.[address] 3.430.2.7 Hospit a .3.536511 l .8 2023-01-28 2023-01-28 Travel 1.2.840.1 [id number] [id number] Methodi 00:00:00 00:00:[address] 3.430.2.7 0.2.7.3.698 Ho spita .3.213923 084.8 l .8 2023-01-28 2023-01-28 Outpatient [facility] [id number] [place] 00:00:00 00:00:00 JIM [address] 2022-09-24 2022-09-24 Telephone Edward 1.2.840.1 [id number] Methodi 00:00:00 00:00:00 , Dillan [address]342.1.[address] [place] 3.430.2.7 Hospit a .3.020597 l .8 2022-07-02 2022-07-02 Office Kevin, 1.2.840.1 [id number] Methodi 12:40:00 16:19:23 Visit Jim Pelayo 23810.1.[address] 3.430.2.7 Hospit a .3.074020 l .8 2022-07-02 2022-07-02 Office Kevin, 1.2.840.1 [id number] Methodi 12:40:00 16:19:23 Visit Jim Pelayo 67147.1.[address] 3.430.2.7 Hospit a .3.562381 l .8 2022-07-02 2022-07-02 Travel 1.2.840.1 1.2.506.606 [id number] Methodi 00:00:00 00:00:[address] 3.430.2.7 0.2.7.3.698 Ho spita .3.432241 084.8 l .8 2022-07-02 2022-07-02 Travel 1.2.840.1 1.2.510.624 [id number] Methodi 00:00:00 00:00:[address] 3.430.2.7 0.2.7.3.698 Ho spita .3.928177 084.8 l .8 2022-04-16 2022-04-16 [facility] [id number] Co mmon 00:00:00 00:00:00 VISIT [facility] PT LEVEL 4 - [facility] 2022-01-29 2022-01-29 Office Kevin 1.2.840.1 [id number] Methodi 14:30:00 16:31:53 Visit Jim Pelayo 31865.1.[address] 3.430.2.7 Hospit a .3.794927 l .8 2022-01-29 2022-01-29 Travel 1.2.840.1 1.2.393.068 [id number] Methodi 00:00:00 00:00:[address] 3.430.2.7 0.2.7.3.698 Ho spita .3.250842 084.8 l .8 2021-03-01 2021-03-01 Outpatient GARCIA, [facility] [id number] [place] 00:00:00 00:00:00 TONE [address] 2021-03-01 2021-03-01 Outpatient RADHA [facility] [id number] [place] 00:00:00 00:00:00 TONE [address] 2021-01-30 2021-01-30 Outpatient KEVIN [facility] [id number] [place] 00:00:00 00:00:00 JIM [address] 2020-11-07 2020-11-07 Outpatient ANUP, [facility] [id number] [place] 00:00:00 00:00:00 IVY [address] 2020-10-17 2020-10-17 Outpatient [facility] [id number] [place] 00:00:00 00:00:[address] 2020-06-07 2020-06-07 Outpatient KEVIN, [facility] [id number] [place] 00:00:00 00:00:00 JIM [address] 2020-06-07 2020-06-07 Outpatient BROWN, [facility] [id number] [place] 00:00:00 00:00:00 JIM [address] 2020-06-06 2020-06-06 Outpatient KEVIN, [facility] [id number] [place] 00:00:00 00:00:00 JIM [address] 2019-10-13 2019-10-13 [facility] 1.2.840.114 [id number] 00:00:00 00:00:00 Hai Feldman 350.1.13.10 [place] 4.2.7.2.686 Professcarito [id number] nal 044 [facility] 2019-10-12 2019-10-12 Orders Doctor AZAM 1.2.840.114 [id number] 00:00:00 00:00:00 Only Unassigned, BHARATH 350.1.13.10 [place] [facility] 4.2.7.2.686 [id number] 2019-05-03 2019-05-[address] [facility] 1.2.840.114 [id number] 14:34:48 12:20:49 Visit Hai Feldman 350.1.13.10 [place] 4.2.7.2.686 Professio [id number] nal 044 [facility] Results Test Description Test Time Test Comments Results Result Comments Source ECG 12 lead 2022-07-03 02:12:51 Test Item Value Reference Range Interpretation Comme nts Ventricular rate (test code = 253) Atrial rate (test code = 255) MN interval (test code = 266) QRSD interval (test code = 260) QT interval (test code = 264) QTC interval (test code = 265) P axis 1 (test code = 267) QRS axis 1 (test code = 268) T wave axis (test code = 270) EKG impression (test code = 273) Sinus bradycardia with premature a trial complexes-Rightward axis-Moderate voltage criteria for LVH, may be normal variant-Borderline ECG-In automated comparison with ECG of 29-JAN-2022 14:36,-No significant change was found- [address]2022-10-26 02:12:51 Test Item Value Reference Range Interpretation Comments Ventricular rate (test code = 253) Atrial rate (test code = 255) MN interval (test code = 266) QRSD interval (test code = 260) QT interval (test code = 264) QTC interval (test code = 265) P axis 1 (test code = 267) QRS axis 1 (test code = 268) T wave axis (test code = 270) EKG impression (test Sinus bradycardia with code = 273) premature atrial complexes-Rightward axis-Moderate voltage criteria for LVH, may be normal variant-Borderline ECG-In automated comparison with ECG of 29-JAN-2022 14:36,-No significant change was found- [address]2022-10-26 02:12:51 Test Item Value Reference Range Interpretation Comments Ventricular rate (test code = 253) Atrial rate (test code = 255) MN interval (test code = 266) QRSD interval (test code = 260) QT interval (test code = 264) QTC interval (test code = 265) P axis 1 (test code = 267) QRS axis 1 (test code = 268) T wave axis (test code = 270) EKG impression (test Sinus bradycardia with code = 273) premature atrial complexes-Rightward axis-Moderate voltage criteria for LVH, may be normal variant-Borderline ECG-In automated comparison with ECG of 29-JAN-2022 14:36,-No significant change was found- [address]2022-10-26 02:12:51 Test Item Value Reference Range Interpretation Comments Ventricular rate (test code = 253) Atrial rate (test code = 255) MN interval (test code = 266) QRSD interval (test code = 260) QT interval (test code = 264) QTC interval (test code = 265) P axis 1 (test code = 267) QRS axis 1 (test code = 268) T wave axis (test code = 270) EKG impression (test Sinus bradycardia with code = 273) premature atrial complexes-Rightward axis-Moderate voltage criteria for LVH, may be normal variant-Borderline ECG-In automated comparison with ECG of 29-JAN-2022 14:36,-No significant change was found- [facility] [id number] 02:12:51 Test Item Value Reference Range Interpretation Comments Ventricular rate (test 52 code = 253) Atrial rate (test code 52 = 255) MN interval (test code 158 = 266) QRSD interval (test 106 code = 260) QT interval (test code 438 = 264) QTC interval (test code 407 = 265) P axis 1 (test code = 87 267) QRS axis 1 (test code = 90 268) T wave axis (test code 79 = 270) EKG impression (test Sinus bradycardia with code = 273) premature atrial complexes-Rightward axis-Moderate voltage criteria for LVH, may be normal variant-Borderline ECG-In automated comparison with ECG of 29-JAN-2022 14:36,-No significant change was found- [facility]
[2023-02-14] MEDS ORDERED: LIDOCAINE 1% MPF 5 ML VIAL ONE (13:10)
[2023-02-14] MEDS ORDERED: TETANUS & DIPHTHERIA TOX,ADULT 0.5 ML VIAL ONE (13:10)
--- NOTE | 2023-02-14 14:04 | ER ---
Nurse's Notes [facility] Name: Jordi Hayward Age: 82 yrs Sex: Male : 1940 Arrival Date: 02/14/2023 Time: 12:22 Bed 10 Private MD: Diagnosis: Laceration to right knee Presentation: 02/14 12:34 Chief complaint: Patient states: Fell 3 hours ago - laceration to right knee. "I think ld1 I may need stitches in my right knee.". Coronavirus screen: At this time, the client does not indicate any symptoms associated with coronavirus-19. Ebola Screen: No symptoms or risks identified at this time. Initial Sepsis Screen: Does the patient meet any 2 criteria? No. Patient's initial sepsis screen is negative. Does the patient have a suspected source of infection? No. Patient's initial sepsis screen is negative. Risk Assessment: Do you want to hurt yourself or someone else? Patient reports no desire to harm self or others. Onset of symptoms was February 14, 2023 at 12:35. 12:34 Method Of Arrival: Ambulatory ld1 12:34 Acuity: DARRYN 4 ld1 Triage Assessment: 12:35 General: Appears in no apparent distress. comfortable, Behavior is calm, cooperative, ld1 appropriate for age. Pain: Denies pain. EENT: No signs and/or symptoms were reported regarding the EENT system. Neuro: Level of Consciousness is awake, alert, obeys commands, Oriented to person, place, time, situation. Cardiovascular: Capillary refill < 3 seconds Patient's skin is warm and dry. Respiratory: Airway is patent Respiratory effort is even, unlabored. GI: Abdomen is flat, non-distended. : No signs and/or symptoms were reported regarding the genitourinary system. Derm: No deficits noted. Musculoskeletal: No signs and/or symptoms reported regarding the musculoskeletal system. Historical: - Allergies: 12:35 No Known Allergies; ld1 - PMHx: 12:35 Hypertension; Osteoporosis; ld1 - PSHx: 12:35 None; ld1 - Immunization history:: Adult Immunizations up to date, Client reports receiving the 2nd dose of the Covid vaccine. - Social history:: Smoking status: Patient denies any tobacco usage or history of. Patient/guardian denies using alcohol. - Family history:: not pertinent. Screenin:14 [facility] ED Fall Risk Assessment (Adult) History of falling in the last 3 months, nj1 including since admission No falls in past 3 months (0 pts) Confusion or Disorientation No (0 pts) Intoxicated or Sedated No (0 pts) Impaired Gait No (0 pts) Mobility Assist Device Used No (0 pt) Altered Elimination No (0 pt) Score/Fall Risk Level 0 - 2 = Low Risk Oriented to surroundings, Maintained a safe environment, Hourly rounding (assess needs \\T\\ fall precautionary measures) done. Abuse screen: Denies threats or abuse. Denies injuries from another. Nutritional screening: No deficits noted. Tuberculosis screening: No symptoms or risk factors identified. Assessment: 13:10 General: Appears in no apparent distress. comfortable, Behavior is calm, cooperative, nj1 appropriate for age. Pain: Denies pain. Neuro: Level of Consciousness is awake, alert, confused, Oriented to person, place, time, situation. Cardiovascular: Patient's skin is warm and dry. Respiratory: Airway is patent Respiratory effort is even, unlabored. Derm: Wound noted right knee. 14:32 Reassessment: Patient appears in no apparent distress at this time. ss Vital Signs: 12:34 BP 159 / 72; Pulse 59; Resp 18; Temp 98.1(TE); Pulse Ox 100% on R/A; Weight 65.77 kg; ld1 Height 5 ft. 9 in. ; Pain 0/10; 14:32 ss 12:34 Body Mass Index 21.41 (65.77 kg, 175.26 cm) ld1 12:34 Pain Scale: Adult ld1 ED Course: 12:27 Patient arrived in ED. ts1 12:27 Shoaib Deal MD is Attending Physician. rt 12:35 Triage completed. ld1 12:35 Arm band placed on right wrist. ld1 13:00 Anna Moses, VIJI is Primary Nurse. nj1 13:15 Patient has correct armband on for positive identification. Bed in low position. Call nj1 light in reach. Adult w/ patient. 13:40 Irrigation of laceration on right knee irrigated with normal saline Patient tolerated nj1 well. 14:32 Assist provider with lumbar puncture: Set up LP tray. Performed by Shoaib Deal MD ss Puncture site dressed with non adherent dressing and ELIOT wrap Procedure was successful. Patient tolerated well. Patient did not have IV access during this emergency room visit. 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 Exp: nj1 02/16/2024. Lot #: [id number]. } Route: IM; Site: right deltoid; 13:48 Follow up: Response: No adverse reaction nj1 14:00 Drug: Lidocaine Infiltration (1 %) 5 ml {Note: administered by Dr. Deal.} Volume: ss 5 ml; Route: Infiltration; 14:32 Follow up: Response: No adverse reaction ss Medication: 13:09 Vaccine Information Statement (VIS) provided today. Questions and/or concerns nj1 addressed. VIS edition date: April 13, 2021. Outcome: 14:03 Discharge ordered by . rt 14:33 Discharged to ss 14:33 Discharged to home ambulatory, with family. 14:33 Condition: good 14:33 Discharge instructions given to patient, family, Instructed on discharge instructions, follow up and referral plans. wound care, Demonstrated understanding of instructions, follow-up care, medications, wound care, Prescriptions given X 1. 14:33 Patient left the ED. ss Signatures: Gabby King RN RN Brianne Bean RN RN ld1 Shoaib Deal MD MD rt Anna Moses RN RN nj1 Ирина Mercado PAS PAS ts1
--- NOTE | 2023-02-14 14:04 | EDPHYS ---
Physician Documentation [facility] Name: Jordi Hayward Age: 82 yrs Sex: Male : 1940 Arrival Date: 02/14/2023 Time: 12:22 Bed 10 Private MD: ED Physician Shoaib Deal HPI: 02/14 14:05 This 82 yrs old Male presents to ER via Ambulatory with complaints of Knee Pain, Fall rt Injury. 14:05 Patient presents to the ED with a laceration to the right knee. The patient was fishing rt in a boat when he tripped over netting, hitting his knee on the side of the boat. He reported a laceration to that area but has been able to bear weight without difficulty. He denies hitting his head or other injury. Pain is aching nature, nonradiating, no other aggravating alleviating factors.. Historical: - Allergies: 12:35 No Known Allergies; ld1 - PMHx: 12:35 Hypertension; Osteoporosis; ld1 - PSHx: 12:35 None; ld1 - Immunization history:: Adult Immunizations up to date, Client reports receiving the 2nd dose of the Covid vaccine. - Social history:: Smoking status: Patient denies any tobacco usage or history of. Patient/guardian denies using alcohol. - Family history:: not pertinent. ROS: 14:05 Constitutional: Negative for fever, chills, and weight loss, Cardiovascular: Negative rt for chest pain, palpitations, and edema, Respiratory: Negative for shortness of breath, cough, wheezing, and pleuritic chest pain, Abdomen/GI: Negative for abdominal pain, nausea, vomiting, diarrhea, and constipation, Neuro: Negative for headache, weakness, numbness, tingling, and seizure, Psych: Negative for depression, anxiety, suicide ideation, homicidal ideation, and hallucinations. 14:05 MS/extremity: Positive for laceration, Negative for deformity. Exam: 14:05 Constitutional: This is a well developed, well nourished patient who is awake, alert, rt and in no acute distress. Head/Face: Normocephalic, atraumatic. Chest/axilla: Normal chest wall appearance and motion. Nontender with no deformity. No lesions are appreciated. Cardiovascular: Regular rate and rhythm with a normal S1 and S2. No gallops, murmurs, or rubs. Normal PMI, no JVD. No pulse deficits. Neuro: Awake and alert, GCS 15, oriented to person, place, time, and situation. Cranial nerves II-XII grossly intact. Motor strength 5/5 in all extremities. Sensory grossly intact. Cerebellar exam normal. Normal gait. Psych: Awake, alert, with orientation to person, place and time. Behavior, mood, and affect are within normal limits. 14:05 Musculoskeletal/extremity: V shaped laceration overlying the right patella. The fascia, joint compartment is not violated. No foreign bodies identified. No tendon involvement.. Vital Signs: 12:34 BP 159 / 72; Pulse 59; Resp 18; Temp 98.1(TE); Pulse Ox 100% on R/A; Weight 65.77 kg; ld1 Height 5 ft. 9 in. ; Pain 0/10; 14:32 ss 12:34 Body Mass Index 21.41 (65.77 kg, 175.26 cm) ld1 12:34 Pain Scale: Adult ld1 Laceration: 14:05 Wound Repair of 4cm ( 1.6in ) subcutaneous laceration to right knee. Hemostasis noted.. rt "V" shaped. Distal neuro/vascular/tendon intact. Anesthesia: Wound infiltrated with 3 mls of 1% lidocaine. Wound prep: Copious irrigation. Skin closed with 8 2-0 Prolene using interrupted sutures and sterile technique. Dressed with 4x4's. Patient tolerated well. MDM: 12:49 Patient medically screened. rt 14:05 Differential diagnosis: Laceration, fracture, joint involvement. Data reviewed: vital rt signs, nurses notes. Test considered but Not performed: X-ray: X-ray considered, however, there is no deformity, joint effusion noted. Very low suspicion for open joint, 10 involvement, fracture. The wound only appears to be skin deep. X-rays are not indicated.. Counseling: I had a detailed discussion with the patient and/or guardian regarding: the historical points, exam findings, and any diagnostic results supporting the discharge/admit diagnosis, the need for outpatient follow up. ED course: After discussion with the patient, the he states there is concern for some contamination due to seawater. Patient requests antibiotic prophylaxis, will prescribe this. Patient's tetanus immunization was updated. Wound care and return precautions were discussed with patient. He was instructed on when to have the sutures removed.. 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 Exp: nj1 02/16/2024. Lot #: [id number]. } Route: IM; Site: right deltoid; 13:48 Follow up: Response: No adverse reaction nj1 14:00 Drug: Lidocaine Infiltration (1 %) 5 ml {Note: administered by Dr. Deal.} Volume: ss 5 ml; Route: Infiltration; 14:32 Follow up: Response: No adverse reaction ss Disposition Summary: 02/14/23 14:03 Discharge Ordered Location: Home rt Problem: new rt Symptoms: have improved rt Condition: Stable rt Diagnosis - Laceration to right knee rt Followup: rt - With: Private Physician - When: 10 - 14 days - Reason: Staple/Suture removal Followup: rt - With: Emergency Department - When: 10 - 14 days - Reason: Staple/Suture removal Discharge Instructions: - Discharge Summary Sheet rt - Laceration Care, Adult rt Forms: - Medication Reconciliation Form rt - Thank You Letter rt - Antibiotic Education rt - Prescription Opioid Use rt Prescriptions: - Cipro 500 mg Oral Tablet - take 1 tablet by ORAL route every 12 hours for 7 days; 14 tablet; Refills: 0, rt Product Selection Permitted Signatures: Gabby King RN RN Brianne Bean RN RN ld1 Shoaib Deal MD MD rt Anna Moses RN RN nj1
[2023-02-14 14:38] VITALS: BP 159/72; TEMP 98.1; O2SAT 100
== END 2023-02-14 14:33 | disposition home or self-care (01) ==
LOC: ER 12:22
PROC: 0HQKXZZ Repair Right Lower Leg Skin, External Approach (ICD-10-PCS; principal; 2023-02-14)
DX: S81.011A Laceration without foreign body, right knee, initial encounter (principal); Z23 Encounter for immunization; I10 Essential (primary) hypertension
CPT/HCPCS: 90471; 90714; 62270; 99285; 12002; J2001